=== PATIENT | female | born 1940 | race Caucasian/White ===

== ENCOUNTER 2017-03-01 16:55 | Observation (INO) | payer MEDICARE, BC ==
--- NOTE | 2017-03-01 17:23 | EDM.PDOC ---
ED HPI GENERAL MEDICAL PROBLEM - General Chief Complaint: Neuro Symptoms/Deficits Stated Complaint: headache, aphasia Time Seen by Provider: 03/01/17 17:15 Source of Information: Reports: Patient History Limitations: Reports: No Limitations - History of Present Illness INITIAL COMMENTS - FREE TEXT/NARRATIVE: This patient is a 76 year old female that presents to the ER with family. Patient reports that she around 3pm developed a left sided frontal headache, dizziness, blurry vision bilaterally, and could not gain thoughts of how to text on her phone. The daughter reports that the patient about 3pm today took her Xanax, then shortly after called her daughter on the phone saying that she had a headache, couldnt see very well, and could not thin very well. The male at bedside reports the patient was confused when they saw her about 4pm. He said they patient could not remember things like what her purse or where it was and that she was disoriented. They report this is new and not like her at all. The report she had some mild slurred speech. They report the patient about 2 months ago had CABG performed at [facility]. The patient reports that she has never had anything like this before. The patient currently is alert and oriented. My stroke score on exam is 0. GCS is 15. The nurse stroke score was 2 about 5 minutes prior to me seeing her. She reported the patient had slurred speech, this is resolved when I saw the patient. The patient does follow most commands, except at times has to be asked twice to perform a stroke command. The patient reports she still has her headache. She reports her blurry vision is resolved. Onset Date: 03/01/17 Onset Time: 15:00 Quality: Reports: Ache, Throbbing Severity: Moderate Improves with: Reports: None Worsens with: Reports: None Associated Symptoms: Reports: Confusion, Headaches. Denies: Chest Pain, Cough, cough w sputum, Diaphoresis, Fever/Chills, Loss of Appetite, Malaise, Nausea/ Vomiting, Rash, Seizure, Shortness of Breath, Syncope, Weakness Left Head Pain Score (Numeric/FACES): 7 - Related Data Allergies Allergy/AdvReac Type Severity Reaction Status Date / Time sulfasalazine [Sulfasalazine] Allergy Mild Rash Verified 02/04/17 15:55 NSAIDS (Non-Steroidal AdvReac Stomach Verified 03/01/17 17:40 Anti-Inflamma Upset Home Meds: Home Meds ALPRAZolam [Alprazolam] 0.25 mg PO TID PRN 11/04/14 [History] Biotin 1 mg PO DAILY 11/04/14 [History] Cholecalciferol (Vitamin D3) [Vitamin D3] 5,000 unit PO DAILY 11/04/14 [History] Cyanocobalamin (Vitamin B-12) [Vitamin B-12] 1,000 mcg PO DAILY 11/04/14 [ History] Levothyroxine 75 mcg PO ACBREAKFAST 11/04/14 [History] traMADol HCl [Tramadol HCl] 50 mg PO TID 11/04/14 [History] DULoxetine HCl [Cymbalta] 30 mg PO DAILY 04/04/15 [History] Aspirin [Ecotrin] 325 mg PO DAILY 02/05/17 [History] Metoprolol Tartrate 12.5 mg PO BID 02/05/17 [History] atorvaSTATin [Lipitor] 20 mg PO DAILY 02/05/17 [History] Past Medical History HEENT History: Reports: Cataract Other Cardiovascular History: MYOCARDITIS; hypercholesterolemia, hypothyrodism, essential hypertension, sick sinus syndrome, diverticulitis with resection, encephalopathy, Gastrointestinal History: Reports: Diverticulosis Genitourinary History: Reports: Other (See Below) Other Genitourinary History: bladder repair Psychiatric History: Reports: Anxiety, Depression Other Endocrine/Metabolic History: HYPOGLYCEMIA - Past Surgical History Other Cardiovascular Surgeries/Procedures: [facility] has been seeing her, will discharge her on 01-30-17; drove to rehab today; has appt with cardiology on 02-02-17; has had one postop appt already. angio 12-19-16, discharged on ; daughter in law stayed with her in her home for a few days; c/o fatigue for awhile, SOB, saw Dr. Benson for a physical, had a stress test, referred to Dr Longo in [place]. She said he did not recommend an angiogram; so Dr. Benson sent her to [place]. Had a pacemaker inserted years ago. Has a history of knee and ankle discomfort--arthritis; since CABG: SOB improving, appetite good, dietitian brought diet pamphlets to her room, not sure that she wants to see a dietitian, knows what to eat, left leg incision and chest incision healing; denies dizziness, denies insomnia. Other GI Surgeries/Procedures: LAP TOÑO Other Musculoskeletal Surgeries/Procedures:: KNEE SURGERY Social & Family History - Tobacco Use Smoking Status *Q: Never Smoker Second Hand Smoke Exposure: No - Caffeine Use Caffeine Use Comment: 1 diet coke/day. Discussed ED ROS GENERAL - Review of Systems Review Of Systems: See Below Constitutional: Reports: No Symptoms HEENT: Reports: Vision Change (blurry vision bialterally. ) Respiratory: Reports: No Symptoms Cardiovascular: Reports: No Symptoms Endocrine: Reports: No Symptoms GI/Abdominal: Reports: No Symptoms : Reports: No Symptoms Musculoskeletal: Reports: No Symptoms Skin: Reports: No Symptoms Neurological: Reports: Confusion, Headache, Change in Speech (resolved. ). Denies: Paresthesia, Syncope, Difficulty Walking, Weakness Psychiatric: Reports: Anxiety Hematologic/Lymphatic: Reports: No Symptoms Immunologic: Reports: No Symptoms ED EXAM, NEURO - Physical Exam Exam: See Below Exam Limited By: No Limitations General Appearance: Alert, WD/WN, No Apparent Distress Eye Exam: Bilateral Eye: EOMI, Normal Inspection, PERRL Ears: Normal External Exam, Normal Canal, Hearing Grossly Normal, Normal TMs Nose: Normal Inspection, Normal Mucosa, No Blood Throat/Mouth: Normal Inspection, Normal Lips, Normal Teeth, Normal Gums, Normal Oropharynx, Normal Voice, No Airway Compromise Head Exam: Atraumatic, Normocephalic Neck: Normal Inspection, Supple, Non-Tender, Full Range of Motion Respiratory/Chest: No Respiratory Distress, Lungs Clear, Normal Breath Sounds, No Accessory Muscle Use, Chest Non-Tender Cardiovascular: Normal Peripheral Pulses, Regular Rate, Rhythm, No Edema, No Gallop, No JVD, No Murmur, No Rub GI/Abdominal: Normal Bowel Sounds, Soft, Non-Tender, No Organomegaly, No Distention, No Abnormal Bruit, No Mass, Pelvis Stable Neurological: Alert, CN II-XII Intact (twice has to be asked twice to perform a command. ), Oriented x 3 Back Exam: Normal Inspection, Full Range of Motion Extremities: Normal Inspection, Normal Range of Motion, Non-Tender, No Pedal Edema, Normal Capillary Refill Psychiatric: Normal Affect, Normal Mood Skin Exam: Warm, Dry, Intact, Normal Color, No Rash Course - Vital Signs Last Recorded V/S: Last Vital Signs Temp 98.8 F 03/01/17 17:05 Pulse 70 03/01/17 18:15 Resp 16 03/01/17 17:05 BP 150/81 H 03/01/17 18:15 Pulse Ox 95 03/01/17 17:05 - Orders/Labs/Meds Orders: Active Orders 24 hr Category Date Time Status EKG Documentation Completion [RC] STAT Care 03/01/17 17:16 Inactive Chest 2V [CR] Stat Exams 03/01/17 17:23 Taken Head wo Cont [CT] Stat Exams 03/01/17 17:03 Taken Labs: Laboratory Tests 03/01/17 03/01/17 03/01/17 Range/Units 17:03 17:20 17:20 WBC 6.8 (5.0-10.0) 10^3/uL RBC 3.77 L (4.00-5.50) 10^6/uL Hgb 11.4 L (12.0-16.0) g/dL Hct 35.8 L (37.0-47.0) % MCV 95.0 H (82.0-94.0) fL MCH 30.2 (27.0-32.0) pg MCHC 31.8 L (33.0-38.0) g/dL RDW Coeff of Eduardo 12.6 (11.0-15.0) % Plt Count 303 (150-400) 10^3/uL Neut % (Auto) 53.3 (35-85) % Lymph % (Auto) 32.2 (10-55) % [place] % (Auto) 11.3 (0-16) % Eos % (Auto) 2.6 (0-5) % Baso % (Auto) 0.6 (0-3) % Neut # (Auto) 3.65 (1.80-7.00) 10^3/uL Lymph # (Auto) 2.20 (1.00-4.80) 10^3/uL [place] # (Auto) 0.77 (0.00-0.80) 10^3/uL Eos # (Auto) 0.18 (0.00-0.45) 10^3/uL Baso # (Auto) 0.04 10^3/uL PT 10.7 (9.7-12.3) SEC INR 0.99 (0.92-1.18) APTT 25.2 (20.0-45.0) SEC Sodium (136-145) mEq/L Potassium (3.5-5.0) mEq/L Chloride (98-106) mEq/L Carbon Dioxide (21-32) mmol/L BUN (7-18) mg/dL Creatinine (0.6-1.0) mg/dL Est Cr Clr Drug Dosing mL/min Estimated GFR (MDRD) (>=60) mL/min Glucose (75-99) mg/dL Calcium (8.4-10.1) mg/dL Total Bilirubin (0.0-1.0) mg/dL AST (15-37) U/L ALT (12-78) U/L Alkaline Phosphatase (46-116) U/L Creatine Kinase (21-215) U/L Troponin I (0.00-0.06) ng/mL Total Protein (6.4-8.2) g/dL Albumin (3.4-5.0) g/dL Urine Color Yellow (YELLOW) Urine Appearance Clear (CLEAR) Urine pH 7.0 (4.5-8.0) Ur Specific [place] 1.015 (1.003-1.020) Urine Protein Negative (NEGATIVE) mg/dL Urine Glucose (UA) Negative (NEGATIVE) mg/dL Urine Ketones Negative (NEGATIVE) mg/dL Urine Occult Blood Trace-intact H (NEGATIVE) Urine Nitrite Negative (NEGATIVE) Urine Bilirubin Negative (NEGATIVE) Urine Urobilinogen 0.2 (0.2-1.0) EU/dL Ur Leukocyte Esterase Small H (NEGATIVE) Urine RBC 0-5 (0-5) /HPF Urine WBC 0-5 (0-5) /HPF Ur Squamous Epith Cells Few H (NOT SEEN) /HPF 03/01/17 03/01/17 Range/Units 17:20 17:20 WBC (5.0-10.0) 10^3/uL RBC (4.00-5.50) 10^6/uL Hgb (12.0-16.0) g/dL Hct (37.0-47.0) % MCV (82.0-94.0) fL MCH (27.0-32.0) pg MCHC (33.0-38.0) g/dL RDW Coeff of Eduardo (11.0-15.0) % Plt Count (150-400) 10^3/uL Neut % (Auto) (35-85) % Lymph % (Auto) (10-55) % [place] % (Auto) (0-16) % Eos % (Auto) (0-5) % Baso % (Auto) (0-3) % Neut # (Auto) (1.80-7.00) 10^3/uL Lymph # (Auto) (1.00-4.80) 10^3/uL [place] # (Auto) (0.00-0.80) 10^3/uL Eos # (Auto) (0.00-0.45) 10^3/uL Baso # (Auto) 10^3/uL PT (9.7-12.3) SEC INR (0.92-1.18) APTT (20.0-45.0) SEC Sodium 139 (136-145) mEq/L Potassium 4.1 (3.5-5.0) mEq/L Chloride 100 (98-106) mEq/L Carbon Dioxide 31 (21-32) mmol/L BUN 19 H D (7-18) mg/dL Creatinine 0.9 (0.6-1.0) mg/dL Est Cr Clr Drug Dosing 42.72 mL/min Estimated GFR (MDRD) > 60 (>=60) mL/min Glucose 99 (75-99) mg/dL Calcium 8.9 (8.4-10.1) mg/dL Total Bilirubin 0.3 (0.0-1.0) mg/dL AST 16 (15-37) U/L ALT 21 (12-78) U/L Alkaline Phosphatase 99 (46-116) U/L Creatine Kinase 55 (21-215) U/L Troponin I 0.031 (0.00-0.06) ng/mL Total Protein 7.2 (6.4-8.2) g/dL Albumin 3.3 L (3.4-5.0) g/dL Urine Color (YELLOW) Urine Appearance (CLEAR) Urine pH (4.5-8.0) Ur Specific [place] (1.003-1.020) Urine Protein (NEGATIVE) mg/dL Urine Glucose (UA) (NEGATIVE) mg/dL Urine Ketones (NEGATIVE) mg/dL Urine Occult Blood (NEGATIVE) Urine Nitrite (NEGATIVE) Urine Bilirubin (NEGATIVE) Urine Urobilinogen (0.2-1.0) EU/dL Ur Leukocyte Esterase (NEGATIVE) Urine RBC (0-5) /HPF Urine WBC (0-5) /HPF Ur Squamous Epith Cells (NOT SEEN) /HPF Meds: Medications Discontinued Medications Generic Name Dose Route Start Last Admin Trade Name Wade PRN Reason Stop Dose Admin Metoprolol Tartrate 2.5 mg 03/01/17 18:08 03/01/17 18:15 Lopressor IVPUSH 03/01/17 18:09 2.5 mg ONETIME ONE Administration - Radiology Interpretation Free Text/Narrative:: Head CT: Discussed with radiologist: No acute bleed, stroke, ischemia. There is chronic, but unchanged from previous. cxr: previous CABG in place. No infiltrate, no edema. CT Results Date: 03/01/17 CT Results Time: 18:00 - Re-Assessments/Exams Free Text/Narrative Re-Assessment/Exam: 03/01/17 18:18 The patient reports that she only has a mild headache now. All other symptoms have resolved. I have called and spoke with Dr. Valdez neurologist at [facility]. He believes this is not a bleed because not on CT, not ischemic because the patient has a headache. He reports he thinks this is hypertension related and would treat as hypertension. I will treat her HTN and admit to the hospital. Family is fine with this plan. Departure - Departure Time of Disposition: 18:20 Disposition: Refer to Observation Condition: Fair Clinical Impression: Hypertensive emergency Headache Qualifiers: Headache type: other vascular headache Qualified Code(s): G44.1 - Vascular headache, not elsewhere classified - Discharge Information Forms: ED Department Discharge - My Orders Last 24 Hours: My Active Orders 03/01/17 17:03 Head wo Cont [CT] Stat 03/01/17 17:16 EKG Documentation Completion [RC] STAT 03/01/17 17:23 Chest 2V [CR] Stat - Assessment/Plan Last 24 Hours: My Active Orders 03/01/17 17:03 Head wo Cont [CT] Stat 03/01/17 17:16 EKG Documentation Completion [RC] STAT 03/01/17 17:23 Chest 2V [CR] Stat Plan: PLEASE SEE RN NOTE FOR PFSH. PLEASE USE ER H&P ADMIT H&P.
[2017-03-01 17:40] LABS: CHLORIDE,CL 100 mEq/L (98-106); SODIUM,NA 139 mEq/L (136-145)
[2017-03-01] MEDS ORDERED: Metoprolol Tartrate 5 MG/5 ML SDV IVPUSH ONE ×2 (18:08→18:36)
[2017-03-01] MEDS ORDERED: Ondansetron 4 MG/2 ML SDV IV PRN (19:45)
[2017-03-01] MEDS ORDERED: Acetaminophen/HYDROcodone 325-5 MG Tab PO PRN (19:45)
[2017-03-01] MEDS ORDERED: ALPRAZolam 0.25 MG Tab PO PRN (19:45)
[2017-03-01] MEDS ORDERED: Acetaminophen 325 MG Tab PO PRN (19:45)
[2017-03-01] MEDS ORDERED: HYDROmorphone 1 MG/ML Syringe IVPUSH PRN (19:45)
[2017-03-01] MEDS ORDERED: Ibuprofen 200 MG Tab PO PRN (19:45)
[2017-03-01] MEDS: Enoxaparin 40 MG/0.4 ML Syringe SUBCUT SCH (20:25)
[2017-03-01] MEDS: TRAMADOL 50 MG PO SCH (20:38)
[2017-03-01] MEDS: METOPROLOL TARTRATE 25 MG PO SCH (20:39)
[2017-03-02] MEDS: Levothyroxine 150 MCG Tab PO SCH (07:01)
[2017-03-02] MEDS ORDERED: Non-Formulary Medication 1 Each (Biotin [Biotin] 1 MG) PO SCH (08:00)
[2017-03-02] MEDS ORDERED: FLU Vacc QS 2017-18 (36mos UP)/PF 60 MCG/0.5 ML Syringe IM ONE (08:00)
[2017-03-02 08:22] LABS: CHLORIDE,CL 101 mEq/L (98-106); SODIUM,NA 138 mEq/L (136-145)
[2017-03-02] MEDS ORDERED: Iopamidol 755 Mg/ML 100 ML Bottle IVPUSH ONE (08:37)
[2017-03-02] MEDS: DULoxetine 30 MG Cap PO SCH (08:40)
[2017-03-02] MEDS: Cholecalciferol (Vitamin D3) 1,000 Unit Tab PO SCH (08:40)
[2017-03-02] MEDS: Cyanocobalamin (Vitamin B12) 1,000 MCG Tab PO SCH (08:42)
[2017-03-02] MEDS: Aspirin 325 MG Tab.EC PO SCH (08:42)
[2017-03-02] MEDS: METOPROLOL TARTRATE 25 MG PO SCH ×2 (08:42→20:27)
[2017-03-02] MEDS: atorvaSTATin 20 MG Tab PO SCH (08:42)
[2017-03-02] MEDS: TRAMADOL 50 MG PO SCH ×3 (08:48→20:27)
--- NOTE | 2017-03-02 09:26 | PN ---
DATE: 03/02/2017 S: Ginger Kim came in with hypertension with TIA symptoms with expressive aphasia. O: NECK: On examination this morning, neck was supple. CHEST: Clear. CARDIAC: Regular. Sternotomy looked good. ABDOMEN: Soft. EXTREMITIES: Unremarkable. NEUROLOGIC: Unremarkable. ASSESSMENT: HYPERTENSIVE CRISIS, TRANSIENT ISCHEMIC ATTACK, STATUS POST CORONARY ARTERY BYPASS SURGERY. WE WILL GO AHEAD AND DO AN ECHO ON HER AND CTA HEAD AND NECK AND STARTED HER ON LISINOPRIL 10 [address] SUKUMAR/ELA /[id number]
[2017-03-02] MEDS: Lisinopril 10 MG Tab PO SCH ×2 (10:35→20:27)
[2017-03-02] MEDS: Enoxaparin 40 MG/0.4 ML Syringe SUBCUT SCH (20:26)
[2017-03-03] MEDS: METOPROLOL TARTRATE 25 MG PO SCH ×2 (00:50→11:36)
[2017-03-03] MEDS: TRAMADOL 50 MG PO SCH ×2 (00:51→11:37)
[2017-03-03 07:53] LABS: CHLORIDE,CL 101 mEq/L (98-106); SODIUM,NA 138 mEq/L (136-145)
[2017-03-03] MEDS: Aspirin 325 MG Tab.EC PO SCH (11:35)
[2017-03-03] MEDS: Levothyroxine 150 MCG Tab PO SCH (11:35)
[2017-03-03] MEDS: DULoxetine 30 MG Cap PO SCH (11:35)
[2017-03-03] MEDS: Lisinopril 10 MG Tab PO SCH (11:36)
[2017-03-03] MEDS: atorvaSTATin 20 MG Tab PO SCH (11:36)
[2017-03-03 11:38] VITALS: BP 126/63
[2017-03-03] MEDS: Cyanocobalamin (Vitamin B12) 1,000 MCG Tab PO SCH (11:38)
[2017-03-03] MEDS: Cholecalciferol (Vitamin D3) 1,000 Unit Tab PO SCH (11:38)
--- NOTE | 2017-03-03 11:58 | PCM.DCSUM1 ---
Discharge Summary - Hospital Course HPI Initial Comments: Patient is a 76 year old female with a past medical history of CAD (CABG x2 2016), hypertension, hyperlipidemia, hypothyroidism, anxiety, and depression who presented to the ER on 03/01/2017 with complaints of left sided frontal headache, dizziness, blurred vision, and difficulty gaining thoughts/words. Family reported confusion and some slurred speech. These symptoms were resolved by the time the provider saw the patient. NIH was [address] was negative. Neurologist was consulted via phone and believed this to be related to hypertension. Patient's blood pressures in the ER were 170's-150's systolic. Patient was given IV metoprolol, which improved blood pressure. Patient was admitted for observation. Throughout hospital stay, blood pressure was well controlled. Patient did not have any further symptoms. Patient remained alert and oriented. Head CTA was completed and negative. Patient was started on lisinopril. Patient will have out patient echo. Patient will follow up in clinic with Dr. Benson in one week. - Discharge Data Discharge Date: 03/03/17 Discharge Disposition: Home, Self-Care 01 Condition: Good - Discharge Diagnosis/Problem(s) (1) Hypertensive emergency SNOMED Code(s): 753859462009083 ICD Code: I16.1 - HYPERTENSIVE EMERGENCY Status: Acute (2) Status post coronary artery bypass graft SNOMED Code(s): 185837706 ICD Code: Z95.1 - PRESENCE OF AORTOCORONARY BYPASS GRAFT Status: Acute (3) TIA (transient ischemic attack) SNOMED Code(s): 875829442 ICD Code: G45.9 - TRANSIENT CEREBRAL ISCHEMIC ATTACK, UNSPECIFIED Status: Acute - Patient Instructions Diet: Heart Healthy Diet Activity: As Tolerated - Discharge Plan Prescriptions/Med Rec: Lisinopril [Prinivil] 10 mg PO BID 30 Days #60 tablet Home Medications: Home Meds ALPRAZolam [Alprazolam] 0.25 mg PO TID PRN 11/04/14 [History] Biotin 1 mg PO DAILY 11/04/14 [History] Cholecalciferol (Vitamin D3) [Vitamin D3] 5,000 unit PO DAILY 11/04/14 [History] Cyanocobalamin (Vitamin B-12) [Vitamin B-12] 1,000 mcg PO DAILY 11/04/14 [ History] Levothyroxine 75 mcg PO ACBREAKFAST 11/04/14 [History] traMADol HCl [Tramadol HCl] 50 mg PO TID 11/04/14 [History] DULoxetine HCl [Cymbalta] 30 mg PO DAILY 04/04/15 [History] Aspirin [Ecotrin] 325 mg PO DAILY 02/05/17 [History] Metoprolol Tartrate 12.5 mg PO BID 02/05/17 [History] atorvaSTATin [Lipitor] 20 mg PO DAILY 02/05/17 [History] Lisinopril [Prinivil] 10 mg PO BID 30 Days #60 tablet 03/03/17 [Rx] Patient Handouts: Stroke Prevention, [id number], Hypertension, [id number], Lisinopril tablets, Managing Your High Blood Pressure Forms: ED Department Discharge Referrals: Conner Benson MD [Primary Care Provider] - - General Info Date of Service: 03/03/17 Admission Dx/Problem (Free Text: Hypertensive Emergency TIA Status Post CABG Subjective Update: At the time of discharge, patient was alert and oriented with no neurologic deficits. Her blood pressure was well controlled. Patient denied any pain. Functional Status: Reports: Pain Controlled, Tolerating Diet, Ambulating, Urinating. Denies: New Symptoms - Review of Systems General: Reports: No Symptoms. Denies: Fever, Weakness, Fatigue HEENT: Reports: No Symptoms Pulmonary: Reports: No Symptoms Cardiovascular: Reports: No Symptoms. Denies: Chest Pain, Palpitations, Lightheadedness Gastrointestinal: Reports: No Symptoms Genitourinary: Reports: No Symptoms Musculoskeletal: Reports: No Symptoms Skin: Reports: No Symptoms Neurological: Reports: No Symptoms. Denies: Confusion, Dizziness, Headache, Numbness, Paresthesia, Pre-Existing Deficit, Seizure, Syncope, Tingling, Tremors , Trouble Speaking, Difficulty Walking, Weakness, Change in Speech, Gait Disturbance Psychiatric: Reports: Anxiety - Patient Data Vitals - Most Recent: Last Vital Signs Temp 98.2 F 03/03/17 08:00 Pulse 58 L 03/03/17 11:36 Resp 18 03/03/17 08:00 BP 126/63 03/03/17 11:36 Pulse Ox 97 03/03/17 08:00 Weight - Most Recent: 123 lb 4.8 oz I&O - Last 24 hours: Intake & Output 10/03/03/17 03/03/17 22:59 06:59 14:59 Intake Total 200 Balance 200 Lab Results - Last 24 hrs: Laboratory Results - last 24 hr 03/03/17 03/03/17 Range/Units 07:00 07:00 WBC 6.3 (5.0-10.0) 10^3/uL RBC 3.80 L (4.00-5.50) 10^6/uL Hgb 11.4 L (12.0-16.0) g/dL Hct 36.2 L (37.0-47.0) % MCV 95.3 H (82.0-94.0) fL MCH 30.0 (27.0-32.0) pg MCHC 31.5 L (33.0-38.0) g/dL RDW Coeff of Eduardo 12.6 (11.0-15.0) % Plt Count 276 (150-400) 10^3/uL Neut % (Auto) 54.8 (35-85) % Lymph % (Auto) 28.8 (10-55) % [place] % (Auto) 13.4 (0-16) % Eos % (Auto) 2.7 (0-5) % Baso % (Auto) 0.3 (0-3) % Neut # (Auto) 3.44 (1.80-7.00) 10^3/uL Lymph # (Auto) 1.81 (1.00-4.80) 10^3/uL [place] # (Auto) 0.84 H (0.00-0.80) 10^3/uL Eos # (Auto) 0.17 (0.00-0.45) 10^3/uL Baso # (Auto) 0.02 10^3/uL Sodium 138 (136-145) mEq/L Potassium 4.2 (3.5-5.0) mEq/L Chloride 101 (98-106) mEq/L Carbon Dioxide 33 H (21-32) mmol/L BUN 15 (7-18) mg/dL Creatinine 0.9 (0.6-1.0) mg/dL Est Cr Clr Drug Dosing 42.72 mL/min Estimated GFR (MDRD) > 60 (>=60) mL/min Glucose 89 (75-99) mg/dL Calcium 9.2 (8.4-10.1) mg/dL Med Orders - Current: Current Medications Acetaminophen (Tylenol) 650 mg PO Q4H PRN PRN Reason: Pain (Mild 1-3)/fever Hydrocodone Bitart/Acetaminophen ([place] 325-5 Mg) 1 tab PO Q4H PRN PRN Reason: Pain (moderate 4-6) Last Admin: 03/03/17 03:22 Dose: 1 tab Alprazolam (Xanax) 0.25 mg PO TID PRN PRN Reason: Anxiety Aspirin (Ecotrin) 325 mg PO DAILY [facility] Last Admin: 03/03/17 11:35 Dose: Not Given Atorvastatin Calcium (Lipitor) 20 mg PO DAILY [facility] Last Admin: 03/03/17 11:36 Dose: Not Given Cholecalciferol (Vitamin D3) 5,000 units PO DAILY [facility] Last Admin: 03/03/17 11:38 Dose: Not Given Cyanocobalamin (Vitamin B12) 1,000 mcg PO DAILY [facility] Last Admin: 03/03/17 11:38 Dose: Not Given Duloxetine HCl (Cymbalta) 30 mg PO DAILY [facility] Last Admin: 03/03/17 11:35 Dose: Not Given Enoxaparin Sodium (Lovenox) 40 mg SUBCUT BEDTIME [facility] Last Admin: 03/02/17 20:26 Dose: 40 mg Hydromorphone HCl (Dilaudid) 0.25 mg IVPUSH Q2H PRN PRN Reason: Pain (severe 7-10) Ibuprofen (Motrin) 600 mg PO Q6H PRN PRN Reason: Pain (mild 1-3) Levothyroxine Sodium (Levothyroxine) 75 mcg PO ACBREAKFAST [facility] Last Admin: 03/03/17 11:35 Dose: Not Given Lisinopril (Prinivil) 10 mg PO BID [facility] Last Admin: 03/03/17 11:36 Dose: Not Given Metoprolol Tartrate (Lopressor) 12.5 mg PO BID [facility] Last Admin: 03/03/17 11:36 Dose: Not Given Ondansetron HCl (Zofran) 4 mg IV Q6H PRN PRN Reason: Nausea/Vomiting Tramadol HCl (Ultram) 50 mg PO TID [facility] Last Admin: 03/03/17 11:37 Dose: Not Given Discontinued Medications Influenza Virus Vaccine (Fluzone Quad 3792-1900) 60 mcg IM .ONCE ONE Stop: 03/02/17 08:01 Last Admin: 03/02/17 11:59 Dose: 60 mcg Iopamidol (Isovue-370 (76%)) 100 ml IVPUSH ONETIME ONE Stop: 03/02/17 08:38 Last Admin: 03/02/17 08:57 Dose: 100 ml Metoprolol Tartrate (Lopressor) 2.5 mg IVPUSH ONETIME ONE Stop: 03/01/17 18:09 Last Admin: 03/01/17 18:15 Dose: 2.5 mg Metoprolol Tartrate (Lopressor) 2.5 mg IVPUSH ONETIME ONE Stop: 03/01/17 18:37 Last Admin: 03/01/17 19:51 Dose: 2.5 mg Non-Formulary Medication (Biotin [Biotin]) 1 mg PO DAILY KRIS[facility] - Exam General: Reports: Alert, Oriented, No Acute Distress HEENT: Reports: Pupils Equal, Pupils Reactive, EOMI, Mucous Membr. Moist/[place] Neck: Reports: Supple Lungs: Reports: Clear to Auscultation, Normal Respiratory Effort Cardiovascular: Reports: Regular Rate, Regular Rhythm GI/Abdominal Exam: Normal Bowel Sounds, Soft, Non-Tender, No Organomegaly, No Distention, No Abnormal Bruit, No Mass, Pelvis Stable (Female) Exam: Deferred Rectal (Female) Exam: Deferred Back Exam: Reports: Normal Inspection, Full Range of Motion Extremities: Normal Inspection, Normal Range of Motion, Non-Tender, No Pedal Edema, Normal Capillary Refill Skin: Reports: Warm, Dry, Intact Neurological: Reports: No New Focal Deficit Psy/Mental Status: Reports: Alert, Normal Affect, Normal Mood *Q Meaningful Use (DIS) - VTE *Q VTE Criteria *Q: - Stroke *Q Stroke Criteria *Q: - AMI *Q AMI Criteria *Q: - [place] I, II, III (1) Hypertensive emergency SNOMED Code(s): 063295130666598 ICD Code: I16.1 - HYPERTENSIVE EMERGENCY Status: Acute - Plan FREE TEXT/NARRATIVE: Continue current home meds. Will start lisinopril 10 mg BID. Continue to check home blood pressures at least twice daily. Discussed stroke symptoms and when to present to ER. Follow up with Dr. Benson in 1 week for hospital recheck. - Problem List Review Problem List Initiated/Reviewed/Updated: Yes - Orders Orders Last 24hrs: Active Orders 24 hr Category Date Time Status Ready for Discharge [RC] PER UNIT ROUTINE Care 03/03/17 09:59 Active
== END 2017-03-03 11:30 | disposition home or self-care (01) ==
LOC: CC.ED 16:55 → UNDOADMOB 18:39 → CC.MS 18:39
PROVIDERS: ADMIT Nurse Practitioner; ATTEND General Practice
DX: I16.1 Hypertensive emergency (principal); G45.9 Transient cerebral ischemic attack, unspecified; R47.01 Aphasia; I25.10 Atherosclerotic heart disease of native coronary artery without angina pectoris; E78.5 Hyperlipidemia, unspecified; E03.9 Hypothyroidism, unspecified; F41.9 Anxiety disorder, unspecified; Z95.1 Presence of aortocoronary bypass graft; Z79.82 Long term (current) use of aspirin; Z79.899 Other long term (current) drug therapy; Z23 Encounter for immunization
CPT/HCPCS: 36415; 70450; 70496; 71020; 80048; 80053; 81001; 82550; 84484; 85025; 85610; 85730; 93005; 93010; 96372; 96374; 96376; 99217; 99220; 99225; 99285; A9270; G0378; J1650; Q9967; 90686; G0008; J3490

== ENCOUNTER 2017-08-25 21:50 | Observation (INO) | payer MEDICARE, BC ==
--- NOTE | 2017-08-25 22:22 | EDM.PDOC ---
ED HPI GENERAL MEDICAL PROBLEM - General Chief Complaint: General Stated Complaint: BILAT SHOULDER PAIN Time Seen by Provider: 08/25/17 22:15 Source of Information: Reports: Patient History Limitations: Reports: No Limitations - History of Present Illness INITIAL COMMENTS - FREE TEXT/NARRATIVE: Ginger is a 76 year old female with a PMH of hypertension, hyperlipidemia, hypothyroidism, and CAD s/p CABG who presents to the ED with c/o bilateral shoulder pain. She reports the pain started around 1830. She reports the pain "sort of" radiates across her chest and down her arms. She reports she does have a history of arthritis and anxiety. She did take an Aleve and Xanax prior to ED presentation. She does report the pain has improved. She is concerned and wants to make sure it is not her heart, as she has a history of double bypass about a year ago. She does report dysnpea with exertion. She reports she has had dyspnea with exertion for awhile now. She denies any shortness of breath at rest currently. Denies any chest pain per say. Denies any N/V, dizziness, headache, weakness. Denies any palpitations or issues with BP. No other concerns. Onset: Today, Gradual Onset Date: 08/25/17 Onset Time: 18:30 Duration: Improving Location: Reports: Chest, Upper Extremity, Left, Upper Extremity, Right Quality: Reports: Ache, Dull Severity: Mild Improves with: Reports: None Worsens with: Reports: None Associated Symptoms: Reports: Chest Pain, Shortness of Breath. 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, Other Medication(s) (XANAX) Bilateral Shoulder Pain Score (Numeric/FACES): 2 - Related Data Allergies Allergy/AdvReac Type Severity Reaction Status Date / Time sulfasalazine [Sulfasalazine] Allergy Mild Rash Verified 08/25/17 21:57 Home Meds: Home Meds ALPRAZolam [Alprazolam] 0.25 mg PO TID PRN 11/04/14 [History] Biotin 1 mg PO DAILY 11/04/14 [History] Cholecalciferol (Vitamin D3) [Vitamin D3] 5,000 unit PO DAILY 11/04/14 [History] Cyanocobalamin (Vitamin B-12) [Vitamin B-12] 1,000 mcg PO DAILY 11/04/14 [ History] Levothyroxine 75 mcg PO ACBREAKFAST 11/04/14 [History] traMADol HCl [Tramadol HCl] 50 mg PO TID 11/04/14 [History] DULoxetine HCl [Cymbalta] 30 mg PO DAILY 04/04/15 [History] Metoprolol Tartrate 12.5 mg PO BID 02/05/17 [History] atorvaSTATin [Lipitor] 20 mg PO DAILY 02/05/17 [History] Lisinopril [Prinivil] 10 mg PO BID 30 Days #60 tablet 03/03/17 [Rx] Loperamide HCl [Anti-Diarrheal] 1 each PO QID PRN 03/17/17 [History] Magnesium 400 mg PO DAILY 03/17/17 [History] Estradiol 1 mg PO DAILY 08/25/17 [History] Past Medical History HEENT History: Reports: Cataract Other Cardiovascular History: MYOCARDITIS; hypercholesterolemia, hypothyrodism, essential hypertension, sick sinus syndrome, diverticulitis with resection, encephalopathy, Gastrointestinal History: Reports: Diverticulosis Genitourinary History: Reports: Other (See Below) Other Genitourinary History: bladder repair Psychiatric History: Reports: Anxiety, Depression Other Endocrine/Metabolic History: HYPOGLYCEMIA - Past Surgical History Other Cardiovascular Surgeries/Procedures: [facility] [place] [facility] been [facility] her, will discharge her on 01-30-17; drove to rehab today; has appt with cardiology on 02-02-17; has had one postop appt already. angio 12-19-16, discharged on ; daughter in law stayed with her in her home for a few days; c/o fatigue for awhile, SOB, saw Dr. Benson for a physical, had a stress test, referred to Dr Longo in [place]. She said he did not recommend an angiogram; so Dr. Benson sent her to [place]. Had a pacemaker inserted years ago. Has a history of knee and ankle discomfort--arthritis; since CABG: SOB improving, appetite good, dietitian brought diet pamphlets to her room, not sure that she wants to see a dietitian, knows what to eat, left leg incision and chest incision healing; denies dizziness, denies insomnia. Other GI Surgeries/Procedures: LAP TOÑO Other Musculoskeletal Surgeries/Procedures:: KNEE SURGERY Social & Family History - Tobacco Use Smoking Status *Q: Never Smoker Second Hand Smoke Exposure: No - Caffeine Use Caffeine Use: Reports: Soda Caffeine Use Comment: 1 diet coke/day. Discussed - Recreational Drug Use Recreational Drug Use: No ED ROS GENERAL - Review of Systems Review Of Systems: See Below Constitutional: Denies: Fever, Chills, Malaise, Weakness, Fatigue, Diaphoresis Respiratory: Denies: Shortness of Breath, Wheezing, Cough, Sputum Cardiovascular: Reports: Chest Pain, Dyspnea on Exertion. Denies: Blood Pressure Problem, Edema, Lightheadedness, Orthopnea, Palpitations, Syncope GI/Abdominal: Reports: Diarrhea. Denies: Abdominal Pain, Decreased Appetite, Nausea, Vomiting : Denies: Dysuria, Frequency, Urgency Musculoskeletal: Reports: Shoulder Pain, Arm Pain, Joint Pain, Joint Swelling Skin: Reports: No Symptoms Neurological: Reports: No Symptoms. Denies: Confusion, Dizziness, Headache, Numbness, Tingling, Weakness Psychiatric: Reports: Anxiety ED EXAM, GENERAL - Physical Exam Exam: See Below General Appearance: Alert, WD/WN, No Apparent Distress Eye Exam: Bilateral Eye: EOMI, PERRL Head: Atraumatic, Normocephalic Neck: Normal Inspection, Supple, Non-Tender, Full Range of Motion Respiratory/Chest: No Respiratory Distress, Lungs Clear, Normal Breath Sounds, No Accessory Muscle Use, Chest Non-Tender Cardiovascular: Normal Peripheral Pulses, Regular Rate, Rhythm, No Edema, No Gallop, No JVD, No Murmur, No Rub Peripheral Pulses: 2+: Dorsalis Pedis (L), Dorsalis Pedis (R) GI/Abdominal: Normal Bowel Sounds, Soft, Non-Tender, No Organomegaly, No Distention, No Abnormal Bruit, No Mass Back Exam: Normal Inspection, Full Range of Motion, NT Extremities: Normal Inspection, Normal Range of Motion, Non-Tender, Normal Capillary Refill, No Pedal Edema Neurological: Alert, Oriented, CN II-XII Intact, Normal Cognition, Normal Gait, Normal Reflexes, No Motor/Sensory Deficits Psychiatric: Normal Affect, Normal Mood Skin Exam: Warm, Dry, Intact, Normal Color, No Rash Lymphatic: No Adenopathy EKG INTERPRETATION EKG Date: 08/25/17 Time: 22:50 Rhythm: NSR [place]: Normal P-Wave: Present QRS: Normal ST-T: Depressed QT: Normal Comparison: NA - No Prior EKG Course - Vital Signs Last Recorded V/S: Last Vital Signs Temp 97.7 F 08/27/17 12:00 Pulse 66 08/27/17 12:00 Resp 16 08/27/17 12:00 BP 129/65 08/27/17 12:00 Pulse Ox 99 08/27/17 12:00 - Orders/Labs/Meds Orders: Medication Orders Acetaminophen (Tylenol) 650 mg PO Q4H PRN PRN Reason: Pain (Mild 1-3)/fever Last Admin: 08/26/17 18:10 Dose: 650 mg Albuterol/Ipratropium (Duoneb 3.0-0.5 Mg/3 Ml) 3 ml NEB Q4H PRN PRN Reason: Shortness Of Breath/wheezing Alprazolam (Xanax) 0.25 mg PO TID PRN PRN Reason: Anxiety Last Admin: 08/26/17 23:15 Dose: 0.25 mg Admin: 08/26/17 18:10 Dose: 0.25 mg Admin: 08/26/17 09:10 Dose: 0.25 mg Atorvastatin Calcium (Lipitor) 20 mg PO DAILY [facility] Last Admin: 08/27/17 08:34 Dose: 20 mg Admin: 08/26/17 09:01 Dose: 20 mg Duloxetine HCl (Cymbalta) 30 mg PO DAILY [facility] Last Admin: 08/27/17 08:34 Dose: 30 mg Admin: 08/26/17 09:02 Dose: 30 mg Enoxaparin Sodium (Lovenox) 40 mg SUBCUT Q24H [facility] Last Admin: 08/26/17 23:15 Dose: 40 mg Admin: 08/26/17 01:34 Dose: 40 mg Estradiol (Estradiol) 1 mg PO DAILY [facility] Last Admin: 08/27/17 08:34 Dose: Admin: 08/26/17 23:20 Dose: 1 mg Levothyroxine Sodium (Synthroid) 75 mcg PO ACBREAKFAST [facility] Last Admin: 08/27/17 08:33 Dose: 75 mcg Admin: 08/26/17 08:58 Dose: 75 mcg Lisinopril (Prinivil) 10 mg PO BID [facility] Last Admin: 08/27/17 11:48 Dose: 10 mg Admin: 08/26/17 20:37 Dose: 10 mg Admin: 08/26/17 09:04 Dose: 10 mg Admin: 08/26/17 01:35 Dose: Not Given Magnesium Hydroxide (Milk Of Magnesia) 30 ml PO Q12H PRN PRN Reason: Constipation Metoprolol Tartrate (Lopressor) 12.5 mg PO BID [facility] Last Admin: 08/26/17 20:36 Dose: 12.5 mg Admin: 08/26/17 08:58 Dose: 12.5 mg Admin: 08/26/17 01:35 Dose: Not Given Metoprolol Tartrate (Lopressor) 2.5 mg IVPUSH Q4H PRN PRN Reason: Hypertension Morphine Sulfate (Morphine) 2 mg IVPUSH Q2H PRN PRN Reason: Pain (severe 7-10) Last Admin: 08/26/17 18:38 Dose: 2 mg Sodium Chloride (Saline Flush) 10 ml FLUSH ASDIRECTED PRN PRN Reason: Keep Vein Open Temazepam (Restoril) 15 mg PO BEDTIME PRN PRN Reason: Sleep Tramadol HCl (Ultram) 50 mg PO TID PRN PRN Reason: Pain Labs: Laboratory Tests 08/25/17 08/25/17 08/25/17 Range/Units 22:06 22:06 22:06 WBC 7.6 (5.0-10.0) 10^3/uL RBC 3.41 L (4.00-5.50) 10^6/uL Hgb 11.2 L (12.0-16.0) g/dL Hct 34.2 L (37.0-47.0) % MCV 100.3 H (82.0-94.0) fL MCH 32.8 H (27.0-32.0) pg MCHC 32.7 L (33.0-38.0) g/dL RDW Coeff of Eduardo 12.0 (11.0-15.0) % Plt Count 243 (150-400) 10^3/uL Neut % (Auto) 58.0 (35-85) % Lymph % (Auto) 26.7 (10-55) % [place] % (Auto) 10.7 (0-16) % Eos % (Auto) 4.5 (0-5) % Baso % (Auto) 0.1 (0-3) % Neut # (Auto) 4.40 (1.80-7.00) 10^3/uL Lymph # (Auto) 2.03 (1.00-4.80) 10^3/uL [place] # (Auto) 0.81 H (0.00-0.80) 10^3/uL Eos # (Auto) 0.34 (0.00-0.45) 10^3/uL Baso # (Auto) 0.01 10^3/uL D-Dimer, Quantitative 2.70 H (0.00-0.50) Sodium 137 (136-145) mEq/L Potassium 3.9 (3.5-5.0) mEq/L Chloride 100 (98-106) mEq/L Carbon Dioxide 29 (21-32) mmol/L BUN 20 H D (7-18) mg/dL Creatinine 0.9 (0.6-1.0) mg/dL Est Cr Clr Drug Dosing 42.72 mL/min Estimated GFR (MDRD) > 60 (>=60) mL/min Glucose 100 H (75-99) mg/dL Calcium 8.0 L (8.4-10.1) mg/dL Total Bilirubin 0.3 (0.0-1.0) mg/dL AST 21 (15-37) U/L ALT 27 (12-78) U/L Alkaline Phosphatase 71 (46-116) U/L Lactate Dehydrogenase 145 (100-190) U/L Creatine Kinase 62 (21-215) U/L Troponin I 0.075 H (0.00-0.06) ng/mL C-Reactive Protein < 0.2 L (0.2-0.8) mg/dL Total Protein 6.3 L (6.4-8.2) g/dL Albumin 3.1 L (3.4-5.0) g/dL Meds: Medications Generic Name Dose Route Start Last Admin Trade Name Freq PRN Reason Stop Dose Admin Acetaminophen 650 mg 08/26/17 00:09 08/26/17 18:10 Tylenol PO 650 mg Q4H PRN Administration Pain (Mild 1-3)/fever Albuterol/Ipratropium 3 ml 08/26/17 00:09 Duoneb 3.0-0.5 Mg/3 Ml NEB Q4H PRN Shortness Of Breath/wheezing Alprazolam 0.25 mg 08/26/17 00:09 08/26/17 23:15 Xanax PO 0.25 mg TID PRN Administration Anxiety Atorvastatin Calcium 20 mg 08/26/17 08:00 08/27/17 08:34 Lipitor PO 20 mg DAILY KRISSY Administration Duloxetine HCl 30 mg 08/26/17 08:00 08/27/17 08:34 Cymbalta PO 30 mg DAILY KRISSY Administration Enoxaparin Sodium 40 mg 08/26/17 00:09 08/26/17 23:15 Lovenox SUBCUT 40 mg Q24H KRISSY Administration Estradiol 1 mg 08/26/17 08:00 08/27/17 08:34 Estradiol PO Not Given DAILY [facility] Levothyroxine Sodium 75 mcg 08/26/17 07:00 08/27/17 08:33 Synthroid PO 75 mcg ACBREAKFAST [facility] Administration Lisinopril 10 mg 08/26/17 00:09 08/27/17 11:48 Prinivil PO 10 mg BID [facility] Administration Magnesium Hydroxide 30 ml 08/26/17 00:09 Milk Of Magnesia PO Q12H PRN Constipation Metoprolol Tartrate 12.5 mg 08/26/17 00:09 08/26/17 20:36 Lopressor PO 12.5 mg BID [facility] Administration Metoprolol Tartrate 2.5 mg 08/26/17 00:09 Lopressor IVPUSH Q4H PRN Hypertension Morphine Sulfate 2 mg 08/26/17 00:09 08/26/17 18:38 Morphine IVPUSH 2 mg Q2H PRN Administration Pain (severe 7-10) Sodium Chloride 10 ml 08/26/17 00:09 Saline Flush FLUSH ASDIRECTED PRN Keep Vein Open Temazepam 15 mg 08/26/17 00:09 Restoril PO BEDTIME PRN Sleep Tramadol HCl 50 mg 08/26/17 00:09 Ultram PO TID PRN Pain Discontinued Medications Generic Name Dose Route Start Last Admin Trade Name Freq PRN Reason Stop Dose Admin Aspirin 324 mg 08/25/17 23:11 08/25/17 23:26 Aspirin PO 08/25/17 23:12 324 mg ONETIME ONE Administration Aspirin 324 mg 08/25/17 23:25 08/25/17 23:26 Aspirin PO 08/25/17 23:26 Not Given ONETIME ONE - Re-Assessments/Exams Free Text/Narrative Re-Assessment/Exam: 08/25/17 22:55 Consulted with Britney for review of EKG. Patient does have some nonspecific [place] depressions. Troponin indeterminant at 0.075. D-Dimer elevated to 2.75. Labs otherwise stable. Proceed with Chest CTA. Will admit to observation and recheck troponin and EKG. Departure - Departure Time of Disposition: 23:05 Disposition: Refer to Observation Condition: Good Clinical Impression: Decreased height of T wave, Chest pain, Status post coronary artery bypass graft, Elevated d-dimer CAD (coronary artery disease) Qualifiers: Coronary Disease-Associated Artery/Lesion type: unspecified vessel or lesion type [place] vs. transplanted heart: unspecified whether [place] or transplanted heart Associated angina: with unspecified angina Qualified Code(s): I25.119 - Atherosclerotic heart disease of [place] coronary artery with unspecified angina pectoris - Discharge Information - Problem List & Annotations (1) CAD (coronary artery disease) SNOMED Code(s): 91252230 Code(s): I25.10 - ATHSCL HEART DISEASE OF [place] CORONARY ARTERY W/O ANG PCTRS Status: Acute Priority: High Current Visit: Yes Qualifiers: Coronary Disease-Associated Artery/Lesion type: unspecified vessel or lesion type [place] vs. transplanted heart: unspecified whether [place] or transplanted heart Associated angina: with unspecified angina Qualified Code (s): I25.119 - Atherosclerotic heart disease of [place] coronary artery with unspecified angina pectoris (2) Decreased height of T wave SNOMED Code(s): 62490187 Code(s): R94.31 - ABNORMAL ELECTROCARDIOGRAM [ECG] [EKG] Status: Acute Current Visit: Yes (3) Status post coronary artery bypass graft SNOMED Code(s): 094003648, 443205353, 729222175 Code(s): Z95.1 - PRESENCE OF AORTOCORONARY BYPASS GRAFT Status: Acute Priority: High Current Visit: Yes (4) Atypical chest pain SNOMED Code(s): 863922516 Code(s): R07.89 - OTHER CHEST PAIN Status: Acute Current Visit: Yes - Problem List Review Problem List Initiated/Reviewed/Updated: Yes - Assessment/Plan Admission H&P: Please use this note as an admission H&P Plan: Admit to Dr. Benson observation with cardiac monitoring Chest CTA for elevated D Dimer. Chest CT negative Serial troponin and EKG
[2017-08-25 22:38] LABS: CHLORIDE,CL 100 mEq/L (98-106); SODIUM,NA 137 mEq/L (136-145)
[2017-08-25] MEDS ORDERED: Aspirin 81 MG Tab.Chew PO ONE ×2 (23:11→23:25)
[2017-08-26] MEDS ORDERED: Acetaminophen 325 MG Tab PO PRN (00:09)
[2017-08-26] MEDS ORDERED: Morphine 2 MG/ML Syringe IVPUSH PRN (00:09)
[2017-08-26] MEDS ORDERED: Albuterol/Ipratropium 3.0-0.5 MG/3 ML Neb Soln NEB PRN (00:09)
[2017-08-26] MEDS ORDERED: Metoprolol Tartrate 5 MG/5 ML SDV IVPUSH PRN (00:09)
[2017-08-26] MEDS ORDERED: Temazepam 15 MG Cap PO PRN (00:09)
[2017-08-26] MEDS ORDERED: Magnesium Hydroxide 400 MG/5 ML Susp 30 ML Cup PO PRN (00:09)
[2017-08-26] MEDS ORDERED: traMADol 50 MG Tab PO PRN (00:09)
[2017-08-26] MEDS ORDERED: Sodium Chloride 0.9% 10 ML Syringe FLUSH PRN (00:09)
[2017-08-26] MEDS: Enoxaparin 40 MG/0.4 ML Syringe SUBCUT SCH ×2 (01:34→23:15)
[2017-08-26] MEDS: Metoprolol Tartrate 25 MG Tab PO SCH ×3 (01:35→20:36)
[2017-08-26] MEDS: Lisinopril 10 MG Tab PO SCH ×3 (01:35→20:37)
[2017-08-26] MEDS: Levothyroxine 50 MCG Tab PO SCH (08:58)
[2017-08-26] MEDS: atorvaSTATin 20 MG Tab PO SCH (09:01)
[2017-08-26] MEDS: DULoxetine 30 MG Cap PO SCH (09:02)
[2017-08-26] MEDS: ALPRAZolam 0.25 MG Tab PO PRN ×3 (09:10→23:15)
--- NOTE | 2017-08-26 17:08 | PCM.PN ---
- General Info Date of Service: 08/26/17 Admission Dx/Problem (Free Text): Atypical chest pain Functional Status: Reports: Pain Controlled, Tolerating Diet, Ambulating - Review of Systems General: Denies: Fever, Weakness, Fatigue HEENT: Reports: No Symptoms Pulmonary: Denies: Shortness of Breath, Cough Cardiovascular: Reports: Chest Pain. Denies: Edema, Lightheadedness Gastrointestinal: Denies: Abdominal Pain, Nausea, Vomiting Genitourinary: Reports: No Symptoms Musculoskeletal: Reports: Shoulder Pain, Arm Pain Skin: Reports: No Symptoms Neurological: Reports: No Symptoms Psychiatric: Reports: Anxiety - Patient Data Vitals - Most Recent: Last Vital Signs Temp 98.6 F 08/26/17 12:00 Pulse 60 08/26/17 12:00 Resp 16 08/26/17 12:00 BP 108/60 08/26/17 12:00 Pulse Ox 97 08/26/17 12:00 Weight - Most Recent: 130 lb Lab Results Last 24 Hours: Laboratory Results - last 24 hr 08/25/17 08/25/17 08/25/17 Range/Units 22:06 22:06 22:06 WBC 7.6 (5.0-10.0) 10^3/uL RBC 3.41 L (4.00-5.50) 10^6/uL Hgb 11.2 L (12.0-16.0) g/dL Hct 34.2 L (37.0-47.0) % MCV 100.3 H (82.0-94.0) fL MCH 32.8 H (27.0-32.0) pg MCHC 32.7 L (33.0-38.0) g/dL RDW Coeff of Eduardo 12.0 (11.0-15.0) % Plt Count 243 (150-400) 10^3/uL Neut % (Auto) 58.0 (35-85) % Lymph % (Auto) 26.7 (10-55) % [place] % (Auto) 10.7 (0-16) % Eos % (Auto) 4.5 (0-5) % Baso % (Auto) 0.1 (0-3) % Neut # (Auto) 4.40 (1.80-7.00) 10^3/uL Lymph # (Auto) 2.03 (1.00-4.80) 10^3/uL [place] # (Auto) 0.81 H (0.00-0.80) 10^3/uL Eos # (Auto) 0.34 (0.00-0.45) 10^3/uL Baso # (Auto) 0.01 10^3/uL D-Dimer, Quantitative 2.70 H (0.00-0.50) Sodium 137 (136-145) mEq/L Potassium 3.9 (3.5-5.0) mEq/L Chloride 100 (98-106) mEq/L Carbon Dioxide 29 (21-32) mmol/L BUN 20 H D (7-18) mg/dL Creatinine 0.9 (0.6-1.0) mg/dL Est Cr Clr Drug Dosing 42.72 mL/min Estimated GFR (MDRD) > 60 (>=60) mL/min Glucose 100 H (75-99) mg/dL Calcium 8.0 L (8.4-10.1) mg/dL Total Bilirubin 0.3 (0.0-1.0) mg/dL AST 21 (15-37) U/L ALT 27 (12-78) U/L Alkaline Phosphatase 71 (46-116) U/L Lactate Dehydrogenase 145 (100-190) U/L Creatine Kinase 62 (21-215) U/L Troponin I 0.075 H (0.00-0.06) ng/mL C-Reactive Protein < 0.2 L (0.2-0.8) mg/dL Total Protein 6.3 L (6.4-8.2) g/dL Albumin 3.1 L (3.4-5.0) g/dL 08/26/17 08/26/17 Range/Units 02:12 06:50 WBC (5.0-10.0) 10^3/uL RBC (4.00-5.50) 10^6/uL Hgb (12.0-16.0) g/dL Hct (37.0-47.0) % MCV (82.0-94.0) fL MCH (27.0-32.0) pg MCHC (33.0-38.0) g/dL RDW Coeff of Eduardo (11.0-15.0) % Plt Count (150-400) 10^3/uL Neut % (Auto) (35-85) % Lymph % (Auto) (10-55) % [place] % (Auto) (0-16) % Eos % (Auto) (0-5) % Baso % (Auto) (0-3) % Neut # (Auto) (1.80-7.00) 10^3/uL Lymph # (Auto) (1.00-4.80) 10^3/uL [place] # (Auto) (0.00-0.80) 10^3/uL Eos # (Auto) (0.00-0.45) 10^3/uL Baso # (Auto) 10^3/uL D-Dimer, Quantitative (0.00-0.50) Sodium (136-145) mEq/L Potassium (3.5-5.0) mEq/L Chloride (98-106) mEq/L Carbon Dioxide (21-32) mmol/L BUN (7-18) mg/dL Creatinine (0.6-1.0) mg/dL Est Cr Clr Drug Dosing mL/min Estimated GFR (MDRD) (>=60) mL/min Glucose (75-99) mg/dL Calcium (8.4-10.1) mg/dL Total Bilirubin (0.0-1.0) mg/dL AST (15-37) U/L ALT (12-78) U/L Alkaline Phosphatase (46-116) U/L Lactate Dehydrogenase (100-190) U/L Creatine Kinase (21-215) U/L Troponin I 0.154 H 0.201 H (0.00-0.06) ng/mL C-Reactive Protein (0.2-0.8) mg/dL Total Protein (6.4-8.2) g/dL Albumin (3.4-5.0) g/dL Med Orders - Current: Current Medications Acetaminophen (Tylenol) 650 mg PO Q4H PRN PRN Reason: Pain (Mild 1-3)/fever Albuterol/Ipratropium (Duoneb 3.0-0.5 Mg/3 Ml) 3 ml NEB Q4H PRN PRN Reason: Shortness Of Breath/wheezing Alprazolam (Xanax) 0.25 mg PO TID PRN PRN Reason: Anxiety Last Admin: 08/26/17 09:10 Dose: 0.25 mg Atorvastatin Calcium (Lipitor) 20 mg PO DAILY [facility] Last Admin: 08/26/17 09:01 Dose: 20 mg Duloxetine HCl (Cymbalta) 30 mg PO DAILY [facility] Last Admin: 08/26/17 09:02 Dose: 30 mg Enoxaparin Sodium (Lovenox) 40 mg SUBCUT Q24H [facility] Last Admin: 08/26/17 01:34 Dose: 40 mg Estradiol (Estradiol) 1 mg PO DAILY [facility] Levothyroxine Sodium (Synthroid) 75 mcg PO ACBREAKFAST [facility] Last Admin: 08/26/17 08:58 Dose: 75 mcg Lisinopril (Prinivil) 10 mg PO BID [facility] Last Admin: 08/26/17 09:04 Dose: 10 mg Magnesium Hydroxide (Milk Of Magnesia) 30 ml PO Q12H PRN PRN Reason: Constipation Metoprolol Tartrate (Lopressor) 12.5 mg PO BID [facility] Last Admin: 08/26/17 08:58 Dose: 12.5 mg Metoprolol Tartrate (Lopressor) 2.5 mg IVPUSH Q4H PRN PRN Reason: Hypertension Morphine Sulfate (Morphine) 2 mg IVPUSH Q2H PRN PRN Reason: Pain (severe 7-10) Sodium Chloride (Saline Flush) 10 ml FLUSH ASDIRECTED PRN PRN Reason: Keep Vein Open Temazepam (Restoril) 15 mg PO BEDTIME PRN PRN Reason: Sleep Tramadol HCl (Ultram) 50 mg PO TID PRN PRN Reason: Pain Discontinued Medications Aspirin (Aspirin) 324 mg PO ONETIME ONE Stop: 08/25/17 23:12 Last Admin: 08/25/17 23:26 Dose: 324 mg Aspirin (Aspirin) 324 mg PO ONETIME ONE Stop: 08/25/17 23:26 Last Admin: 08/25/17 23:26 Dose: Not Given - Exam General: Alert, Oriented HEENT: Mucous Membr. Moist/[place] Neck: Supple Lungs: Clear to Auscultation, Normal Respiratory Effort Cardiovascular: Regular Rate, Regular Rhythm GI/Abdominal Exam: Normal Bowel Sounds, Soft, Non-Tender Extremities: Normal Inspection, No Pedal Edema Skin: Warm, Dry Neurological: No New Focal Deficit - Problem List & Annotations (1) Chest pain SNOMED Code(s): 68179960 Code(s): R07.9 - CHEST PAIN, UNSPECIFIED Status: Acute Priority: High Current Visit: Yes (2) CAD (coronary artery disease) SNOMED Code(s): 49417963 Code(s): I25.10 - ATHSCL HEART DISEASE OF [place] CORONARY ARTERY W/O ANG PCTRS Status: Acute Priority: High Current Visit: Yes Qualifiers: Coronary Disease-Associated Artery/Lesion type: unspecified vessel or lesion type [place] vs. transplanted heart: unspecified whether [place] or transplanted heart Associated angina: with unspecified angina Qualified Code (s): I25.119 - Atherosclerotic heart disease of [place] coronary artery with unspecified angina pectoris (3) Status post coronary artery bypass graft SNOMED Code(s): 104882484, 596925074, 830594417 Code(s): Z95.1 - PRESENCE OF AORTOCORONARY BYPASS GRAFT Status: Acute Priority: High Current Visit: Yes - Problem List Review Problem List Initiated/Reviewed/Updated: Yes - My Orders Last 24 Hours: My Active Orders 08/27/17 09:00 Myocardial Perf Spect Multi [NM] Routine - Assessment Assessment:: Atypical chest pain H/O 2 vessel CABG - Plan Plan:: Patient continues to have intermittent bilateral chest discomfort that radiates up her shoulders and down her arms at times. Does relate that she also feels anxious due to her history of heart disease and CABG. She has done well since admission until this am, had an episode that lasted only a few minutes but was similar to last evening. Patient denies shortness of breath during episode. Serial enzymes have remained at an indeterminate range. No EKG changes through the night. Vital signs are stable. Did have elevated d-dimer but report reviewed and is negative for PE Will continue to monitor cardiac status due to ongoing intermittent pain. Plan for cardiolyte stress test tomorrow.
[2017-08-26] MEDS: Estradiol 1 MG Tab PO SCH ×2 (20:02→23:20)
[2017-08-27] MEDS: Levothyroxine 50 MCG Tab PO SCH (08:33)
[2017-08-27] MEDS: atorvaSTATin 20 MG Tab PO SCH (08:34)
[2017-08-27] MEDS: DULoxetine 30 MG Cap PO SCH (08:34)
[2017-08-27] MEDS: Estradiol 1 MG Tab PO SCH (08:34)
[2017-08-27] MEDS: Lisinopril 10 MG Tab PO SCH (11:48)
[2017-08-27 12:29] VITALS: BP 129/65
--- NOTE | 2017-08-27 17:42 | PCM.DCSUM1 ---
Discharge Summary - Hospital Course HPI Initial Comments: Ginger is a 76 year old female who was admitted to the hospital with c/o bilateral shoulder pain, radiating across her chest. She does have a history of double CABG. Her initial troponin was indeterminante range and her EKG showed T wave depression. D-dimer was elevated, however PE was ruled out. Chest CTA was negative. She was admitted observation for serial troponins and EKG. Troponin was checked throughout stay and remained low. No changes noted on repeat EKG. She did have a cardiolyte on the day of discharge. Results not available at time of discharge. Patient does struggle with severe anxiety and depression. She did have a few episodes during hospitalization where she would have a panic attack. Symptoms were improved by Xanax. We will increase her Cymbalta to 60 mg daily and her Xanax to 0.5 mg PO TID PRN panic attack. She will follow up with Dr. Benson next week. We will notify her of cardiolyte results once available. She is not interested in counseling at this time, but she will further discuss this with Dr. Benson, her PCP if she is interested in the future. - Discharge Data Discharge Date: 08/27/17 Discharge Disposition: Home, Self-Care 01 Condition: Good - Discharge Diagnosis/Problem(s) (1) Atypical chest pain SNOMED Code(s): 791493831 ICD Code: R07.89 - OTHER CHEST PAIN Status: Acute (2) CAD (coronary artery disease) SNOMED Code(s): 88590244 ICD Code: I25.10 - ATHSCL HEART DISEASE OF [place] CORONARY ARTERY W/O ANG PCTRS Status: Acute Priority: High Qualifiers: Coronary Disease-Associated Artery/Lesion type: unspecified vessel or lesion type [place] vs. transplanted heart: unspecified whether [place] or transplanted heart Associated angina: with unspecified angina Qualified Code (s): I25.119 - Atherosclerotic heart disease of [place] coronary artery with unspecified angina pectoris (3) Status post coronary artery bypass graft SNOMED Code(s): 663803593, 431552184, 390328618 ICD Code: Z95.1 - PRESENCE OF AORTOCORONARY BYPASS GRAFT Status: Acute Priority: High (4) Anxiety SNOMED Code(s): 56546959 ICD Code: F41.9 - ANXIETY DISORDER, UNSPECIFIED Status: Acute (5) Depression SNOMED Code(s): 67119982 ICD Code: F32.9 - MAJOR DEPRESSIVE DISORDER, SINGLE EPISODE, UNSPECIFIED Status: Acute Qualifiers: Depression Type: dysthymia Qualified Code(s): F34.1 - Dysthymic disorder - Patient Instructions Diet: Usual Diet as Tolerated Activity: As Tolerated Notify Provider of: Increased Pain - Discharge Plan Prescriptions/Med Rec: ALPRAZolam [Xanax] 0.5 mg PO TID PRN #20 tablet PRN Reason: Anxiety DULoxetine HCl [Cymbalta] 60 mg PO DAILY #30 capsule. Home Medications: Home Meds Biotin 1 mg PO DAILY 11/04/14 [History] Cholecalciferol (Vitamin D3) [Vitamin D3] 5,000 unit PO DAILY 11/04/14 [History] Cyanocobalamin (Vitamin B-12) [Vitamin B-12] 1,000 mcg PO DAILY 11/04/14 [ History] Levothyroxine 75 mcg PO ACBREAKFAST 11/04/14 [History] traMADol HCl [Tramadol HCl] 50 mg PO TID 11/04/14 [History] Metoprolol Tartrate 12.5 mg PO BID 02/05/17 [History] atorvaSTATin [Lipitor] 20 mg PO DAILY 02/05/17 [History] Lisinopril [Prinivil] 10 mg PO BID 30 Days #60 tablet 03/03/17 [Rx] Loperamide HCl [Anti-Diarrheal] 1 each PO QID PRN 03/17/17 [History] Magnesium 400 mg PO DAILY 03/17/17 [History] Estradiol 1 mg PO DAILY 08/25/17 [History] ALPRAZolam [Xanax] 0.5 mg PO TID PRN #20 tablet 08/27/17 [Rx] DULoxetine HCl [Cymbalta] 60 mg PO DAILY #30 capsule. 08/27/17 [Rx] Patient Handouts: Generalized Anxiety Disorder, Adult, Panic Attacks, Easy-to- Read Forms: ED Department Discharge Referrals: Conner Benson MD [Primary Care Provider] - - Patient Data Vitals - Most Recent: Last Vital Signs Temp 97.7 F 08/27/17 12:00 Pulse 66 08/27/17 12:00 Resp 16 08/27/17 12:00 BP 129/65 08/27/17 12:00 Pulse Ox 99 08/27/17 12:00 Weight - Most Recent: 130 lb Lab Results - Last 24 hrs: Laboratory Results - last 24 hr 08/26/17 Range/Units 18:50 Troponin I 0.193 H (0.00-0.06) ng/mL Med Orders - Current: Current Medications Acetaminophen (Tylenol) 650 mg PO Q4H PRN PRN Reason: Pain (Mild 1-3)/fever Last Admin: 08/26/17 18:10 Dose: 650 mg Albuterol/Ipratropium (Duoneb 3.0-0.5 Mg/3 Ml) 3 ml NEB Q4H PRN PRN Reason: Shortness Of Breath/wheezing Alprazolam (Xanax) 0.25 mg PO TID PRN PRN Reason: Anxiety Last Admin: 08/26/17 23:15 Dose: 0.25 mg Atorvastatin Calcium (Lipitor) 20 mg PO DAILY [facility] Last Admin: 08/27/17 08:34 Dose: 20 mg Duloxetine HCl (Cymbalta) 30 mg PO DAILY [facility] Last Admin: 08/27/17 08:34 Dose: 30 mg Enoxaparin Sodium (Lovenox) 40 mg SUBCUT Q24H [facility] Last Admin: 08/26/17 23:15 Dose: 40 mg Estradiol (Estradiol) 1 mg PO DAILY [facility] Last Admin: 08/27/17 08:34 Dose: Not Given Levothyroxine Sodium (Synthroid) 75 mcg PO ACBREAKFAST [facility] Last Admin: 08/27/17 08:33 Dose: 75 mcg Lisinopril (Prinivil) 10 mg PO BID [facility] Last Admin: 08/27/17 11:48 Dose: 10 mg Magnesium Hydroxide (Milk Of Magnesia) 30 ml PO Q12H PRN PRN Reason: Constipation Metoprolol Tartrate (Lopressor) 12.5 mg PO BID [facility] Last Admin: 08/26/17 20:36 Dose: 12.5 mg Metoprolol Tartrate (Lopressor) 2.5 mg IVPUSH Q4H PRN PRN Reason: Hypertension Morphine Sulfate (Morphine) 2 mg IVPUSH Q2H PRN PRN Reason: Pain (severe 7-10) Last Admin: 08/26/17 18:38 Dose: 2 mg Sodium Chloride (Saline Flush) 10 ml FLUSH ASDIRECTED PRN PRN Reason: Keep Vein Open Temazepam (Restoril) 15 mg PO BEDTIME PRN PRN Reason: Sleep Tramadol HCl (Ultram) 50 mg PO TID PRN PRN Reason: Pain Discontinued Medications Aspirin (Aspirin) 324 mg PO ONETIME ONE Stop: 08/25/17 23:12 Last Admin: 08/25/17 23:26 Dose: 324 mg Aspirin (Aspirin) 324 mg PO ONETIME ONE Stop: 08/25/17 23:26 Last Admin: 08/25/17 23:26 Dose: Not Given
--- NOTE | 2017-08-29 02:03 | OR ---
DATE OF OPERATION: 08/27/2017 CARDIOLITE STRESS TEST INTERPRETATION May Pastor administered Cardiolite stress test on this patient of Dr. Benson for atypical chest pain. This is the interpretation portion. The patient was able to exercise for total time of 2 minutes and 58 seconds and only treadmill stage I, she achieved a max heart rate of 131, max BP of 150/80, both were appropriate responses. Her total max workload was 4.6 mets. At maximal exercise, the patient had no exercise-induced arrhythmias. All ST segments appeared to be flat, upsloping without any signs of ischemia. Overall, this is an adequate and negative telemetry portion of a Cardiolite. Tracer was given appropriately and images will be forthcoming. GUS/ELA /[id number]
--- NOTE | 2017-08-31 14:51 | OR ---
DATE OF OPERATION: 08/27/2017 Mrs. Ginger Kim is a patient of Dr. Benson, who was sent for a Cardiolite stress test due to some chest pain that she had been having and also history of cardiac bypass surgery in 12/2016. The patient was exercised using standard Ortiz protocol for a total of 3 minutes. She was able to exercise going into the treadmill stage I. The test was stopped due to her achieving her target heart rate. Maximum blood pressure was 138/86, maximum heart rate was 129 from a target of 123. At maximal exercise, the patient did not have any arrhythmias or chest pain. Cardiolite tracer was given appropriately and images will be forthcoming, and she will be followed up with Dr. Benson. HAMZAH/ELA /[id number]
== END 2017-08-27 17:58 | disposition home or self-care (01) ==
LOC: CC.ED 21:50 → CC.MS 23:00 → UNDOADMOB 23:00 → CC.MS 23:07
PROVIDERS: ADMIT Nurse Practitioner Family; ATTEND General Practice
DX: I25.119 Atherosclerotic heart disease of native coronary artery with unspecified angina pectoris (principal); F41.9 Anxiety disorder, unspecified; F32.9 Major depressive disorder, single episode, unspecified; I10 Essential (primary) hypertension; E78.5 Hyperlipidemia, unspecified; E03.9 Hypothyroidism, unspecified; M19.90 Unspecified osteoarthritis, unspecified site; Z95.1 Presence of aortocoronary bypass graft; Z79.899 Other long term (current) drug therapy; Z88.8 Allergy status to other drugs, medicaments and biological substances
CPT/HCPCS: 36415; 71275; 78452; 80053; 82550; 83615; 84484; 85025; 85379; 86140; 93005; 93010; 93017; 96372; 96374; 99217; 99220; 99225; 99285; A9270; A9500; G0378; J1650; J2270; Q9967

== ENCOUNTER 2017-11-03 22:58 | Observation (INO) | payer MEDICARE, BC ==
[2017-11-03] MEDS: Aspirin 81 MG Tab.Chew PO ONE (23:00)
--- NOTE | 2017-11-04 00:09 | EDM.PDOC ---
ED HPI GENERAL MEDICAL PROBLEM - General Chief Complaint: Chest Pain Stated Complaint: shortness of breath Time Seen by Provider: 11/03/17 23:20 Source of Information: Reports: Patient History Limitations: Reports: No Limitations - History of Present Illness INITIAL COMMENTS - FREE TEXT/NARRATIVE: Patient presents to ER with a 2 day history of intermittent left arm pain. States this evening was experiencing a tightness to her left upper arm, "like someone was grasping the arm and squeezing" with radiation up to her neck. She relates that she has had pain like this prior to her last bypass surgery. Has had 2 open heart surgeries in the last 9 months. States 2nd surgery was 6 weeks ago. She relates that it was a result of the first one failing so she is worried that that may be happening again. She contacted [facility] spoke with them, they advised her to be seen. She took a nitro at home and now the pain is gone. She has been experiencing shortness of breath for the last month, did tell Dr. Rebollar, her heart surgeon and they are just watching this. Onset: Gradual Duration: Day(s): Location: Reports: Chest Quality: Reports: Ache Severity: Moderate Improves with: Reports: Medication Associated Symptoms: Reports: Chest Pain, Shortness of Breath. Denies: Cough, Diaphoresis, Fever/Chills, Loss of Appetite, Malaise, Nausea/Vomiting, Syncope, Weakness Treatments [employer]: Reports: Nitroglycerin - Related Data Allergies Allergy/AdvReac Type Severity Reaction Status Date / Time sulfasalazine [Sulfasalazine] Allergy Mild Rash Verified 08/25/17 21:57 Dairy Products Allergy Other Verified 11/03/17 23:18 lorazepam Allergy Headache Verified 11/03/17 23:18 dairy Allergy Other Uncoded 11/03/17 23:18 Home Meds: Home Meds Biotin 1 mg PO DAILY 11/04/14 [History] Cholecalciferol (Vitamin D3) [Vitamin D3] 5,000 unit PO DAILY 11/04/14 [History] Cyanocobalamin (Vitamin B-12) [Vitamin B-12] 1,000 mcg PO DAILY 11/04/14 [ History] Levothyroxine 75 mcg PO ACBREAKFAST 11/04/14 [History] traMADol HCl [Tramadol HCl] 100 mg PO TID PRN 11/04/14 [History] atorvaSTATin [Lipitor] 20 mg PO DAILY 02/05/17 [History] Loperamide HCl [Anti-Diarrheal] 1 each PO QID PRN 03/17/17 [History] Magnesium 400 mg PO DAILY 03/17/17 [History] Estradiol 1 mg PO DAILY 08/25/17 [History] ALPRAZolam [Xanax] 0.5 mg PO TID PRN #20 tablet 08/27/17 [Rx] DULoxetine HCl [Cymbalta] 60 mg PO DAILY #30 capsule. 08/27/17 [Rx] Aspirin [Ecotrin] 81 mg PO DAILY 11/03/17 [History] Clopidogrel [Plavix] 75 mg PO DAILY 11/03/17 [History] Nitroglycerin [Nitrostat] 0.4 mg SL ASDIRECTED PRN 11/03/17 [History] Past Medical History HEENT History: Reports: Cataract Cardiovascular History: Reports: Angina, Bypass, High Cholesterol, Hypertension , Pacemaker, SOB on Exertion Other Cardiovascular History: MYOCARDITIS; hypercholesterolemia, hypothyrodism, essential hypertension, sick sinus syndrome, diverticulitis with resection, encephalopathy, Gastrointestinal History: Reports: Diverticulosis Genitourinary History: Reports: Other (See Below) Other Genitourinary History: bladder repair [employer] History: Reports: Dysfunctional Uterine Bleeding Psychiatric History: Reports: Anxiety, Depression Endocrine/Metabolic History: Reports: Hypothyroidism Other Endocrine/Metabolic History: HYPOGLYCEMIA - Past Surgical History HEENT Surgical History: Reports: Cataract Surgery Cardiovascular Surgical History: Reports: Carotid Stents, Coronary Artery Bypass Other Cardiovascular Surgeries/Procedures: [facility] has been seeing her, will discharge her on 01-30-17; drove to rehab today; has appt with cardiology on 02-02-17; has had one postop appt already. angio 12-19-16, discharged on ; daughter in law stayed with her in her home for a few days; c/o fatigue for awhile, SOB, saw Dr. Benson for a physical, had a stress test, referred to Dr Longo in [place]. She said he did not recommend an angiogram; so Dr. Benson sent her to [place]. Had a pacemaker inserted years ago. Has a history of knee and ankle discomfort--arthritis; since CABG: SOB improving, appetite good, dietitian brought diet pamphlets to her room, not sure that she wants to see a dietitian, knows what to eat, left leg incision and chest incision healing; denies dizziness, denies insomnia. GI Surgical History: Reports: Appendectomy, Other (See Below) Other GI Surgeries/Procedures: LAP TOÑO. color resection Female Surgical History: Reports: Hysterectomy Musculoskeletal Surgical History: Reports: Other (See Below) Other Musculoskeletal Surgeries/Procedures:: KNEE SURGERY Social & Family History - Family History Family Medical History: Noncontributory - Tobacco Use Smoking Status *Q: Never Smoker - Caffeine Use Caffeine Use: Reports: Soda Caffeine Use Comment: 1 diet coke/day. Discussed ED ROS GENERAL - Review of Systems Review Of Systems: See Below Constitutional: Reports: Fatigue. Denies: Fever, Chills, Malaise, Weakness, Diaphoresis, Decreased Appetite HEENT: Reports: No Symptoms Respiratory: Reports: Shortness of Breath. Denies: Cough Cardiovascular: Reports: Chest Pain. Denies: Edema, Lightheadedness Endocrine: Denies: Fatigue GI/Abdominal: Denies: Abdominal Pain, Nausea, Vomiting : Reports: No Symptoms Musculoskeletal: Reports: No Symptoms Skin: Reports: Other (chest incision) Neurological: Reports: No Symptoms Psychiatric: Reports: No Symptoms ED EXAM, GENERAL - Physical Exam Exam: See Below Exam Limited By: No Limitations General Appearance: Alert, WD/WN, No Apparent Distress Ears: Normal External Exam, Normal TMs Nose: Normal Inspection, Normal Mucosa, No Blood Throat/Mouth: Normal Inspection, Normal Oropharynx Head: Normocephalic Neck: Normal Inspection, Supple, Non-Tender Respiratory/Chest: No Respiratory Distress, Lungs Clear, Normal Breath Sounds Cardiovascular: Regular Rate, Rhythm GI/Abdominal: Normal Bowel Sounds, Soft, Non-Tender Extremities: Normal Inspection, Normal Range of Motion Neurological: Alert, Oriented Skin Exam: Warm, Dry Course - Vital Signs Last Recorded V/S: Last Vital Signs Temp 98.1 F 11/03/17 23:00 Pulse 80 11/03/17 23:00 Resp 16 11/03/17 23:00 BP 150/87 H 11/03/17 23:00 Pulse Ox 97 11/03/17 23:00 - Orders/Labs/Meds Orders: Active Orders 24 hr Category Date Time Status Patient Status Manage Transfer [TRANSFER] Routine ADT 11/03/17 23:37 Ordered EKG Documentation Completion [RC] STAT Care 11/03/17 23:02 Active CXR [Chest 2V] [CR] Stat Exams 11/03/17 23:02 Taken Resuscitation Status Routine Resus Stat 11/03/17 23:38 Ordered Labs: Laboratory Tests 11/03/17 11/03/17 11/03/17 Range/Units 23:10 23:10 23:10 WBC 7.1 (5.0-10.0) 10^3/uL RBC 3.63 L (4.00-5.50) 10^6/uL Hgb 11.6 L (12.0-16.0) g/dL Hct 35.4 L (37.0-47.0) % MCV 97.5 H (82.0-94.0) fL MCH 32.0 (27.0-32.0) pg MCHC 32.8 L (33.0-38.0) g/dL RDW Coeff of Eduardo 13.0 (11.0-15.0) % Plt Count 275 (150-400) 10^3/uL Neut % (Auto) 52.5 (35-85) % Lymph % (Auto) 30.8 (10-55) % [place] % (Auto) 13.0 (0-16) % Eos % (Auto) 3.4 (0-5) % Baso % (Auto) 0.3 (0-3) % Neut # (Auto) 3.72 (1.80-7.00) 10^3/uL Lymph # (Auto) 2.18 (1.00-4.80) 10^3/uL [place] # (Auto) 0.92 H (0.00-0.80) 10^3/uL Eos # (Auto) 0.24 (0.00-0.45) 10^3/uL Baso # (Auto) 0.02 10^3/uL PT 9.9 (9.7-12.3) SEC INR 0.95 (0.92-1.18) APTT 25.0 (23.2-32.3) SEC Sodium 136 (136-145) mEq/L Potassium 4.1 (3.5-5.0) mEq/L Chloride 99 (98-106) mEq/L Carbon Dioxide 32 (21-32) mmol/L BUN 19 H (7-18) mg/dL Creatinine 1.1 H (0.6-1.0) mg/dL Est Cr Clr Drug Dosing 37.57 mL/min Estimated GFR (MDRD) 48 L (>=60) mL/min Glucose 76 D (75-99) mg/dL Calcium 8.5 (8.4-10.1) mg/dL Lactate Dehydrogenase 183 (100-190) U/L Creatine Kinase 57 (21-215) U/L Troponin I 0.082 H (0.00-0.06) ng/mL Meds: Medications Discontinued Medications Generic Name Dose Route Start Last Admin Trade Name Freq PRN Reason Stop Dose Admin Aspirin 324 mg 11/03/17 23:00 11/03/17 23:00 Aspirin PO 11/03/17 23:01 324 mg ONETIME ONE Administration - Re-Assessments/Exams Free Text/Narrative Re-Assessment/Exam: 11/04/17 Lab results reviewed. Troponin is indeterminate at this time. Will admit observation with repeat enzymes in am. Patient aware and agrees with plan Departure - Departure Time of Disposition: 00:16 Disposition: Refer to Observation Condition: Good Clinical Impression: Chest pain - Problem List & Annotations (1) Chest pain SNOMED Code(s): 33344849 Code(s): R07.9 - CHEST PAIN, UNSPECIFIED Status: Acute Priority: High Current Visit: Yes - Problem List Review Problem List Initiated/Reviewed/Updated: Yes - My Orders Last 24 Hours: My Active Orders 11/03/17 23:02 EKG Documentation Completion [RC] STAT CXR [Chest 2V] [CR] Stat 11/03/17 23:37 Patient Status Manage Transfer [TRANSFER] Routine 11/03/17 23:38 Resuscitation Status Routine - Assessment/Plan Admission H&P: Please use this note as an admission H&P Last 24 Hours: My Active Orders 11/03/17 23:02 EKG Documentation Completion [RC] STAT CXR [Chest 2V] [CR] Stat 11/03/17 23:37 Patient Status Manage Transfer [TRANSFER] Routine 11/03/17 23:38 Resuscitation Status Routine Assessment:: Chest Pain s/p CABG Plan: Admit observation to Dr. Chen. Will repeat cardiac enzymes and EKG in am and contact cardiology as needed.
[2017-11-04] MEDS ORDERED: Acetaminophen 325 MG Tab PO PRN (00:24)
[2017-11-04] MEDS ORDERED: Nitroglycerin 0.4 MG Tab.SL SL PRN (00:24)
[2017-11-04] MEDS ORDERED: Ondansetron 4 MG Tab.DIS PO PRN (00:24)
[2017-11-04] MEDS ORDERED: Sodium Chloride 0.9% 10 ML Syringe FLUSH PRN (00:24)
[2017-11-04] MEDS ORDERED: Temazepam 15 MG Cap PO PRN (00:24)
[2017-11-04] MEDS ORDERED: ALPRAZolam 0.5 MG Tab.DIS (ODT) PO PRN (00:45)
[2017-11-04] MEDS: Enoxaparin 40 MG/0.4 ML Syringe SUBCUT SCH (01:49)
[2017-11-04 07:23] LABS: CHLORIDE,CL 102 mEq/L (98-106); SODIUM,NA 138 mEq/L (136-145)
[2017-11-04] MEDS: Levothyroxine 50 MCG Tab PO SCH (11:08)
[2017-11-04] MEDS: atorvaSTATin 20 MG Tab PO SCH (11:09)
[2017-11-04] MEDS: Clopidogrel 75 MG Tab PO SCH (11:09)
[2017-11-04] MEDS: Cholecalciferol (Vitamin D3) 1,000 Unit Tab PO SCH (11:10)
[2017-11-04] MEDS: Isosorbide Mononitrate 60 MG Tab.ER PO SCH (11:10)
[2017-11-04] MEDS: traMADol 50 MG Tab PO PRN (11:12)
[2017-11-04] MEDS: Metoprolol Tartrate 25 MG Tab PO SCH (11:12)
[2017-11-04 11:56] VITALS: BP 138/68
--- NOTE | 2017-11-04 14:30 | PCM.DCSUM1 ---
Discharge Summary - Hospital Course Free Text/Narrative:: Patient presented to ER last evening with complaints of intermittent chest pain with left arm and jaw pain. Pain had 2 vessel bypass on September [address] Rebollar at [facility]. This was the second bypass surgery, first one done 9 months ago and the grafts had failed. She notes she has been short of breath since surgery , surgeon aware. Did take one nitro at home and pain was relieved. Labs last night showed an indeterminate troponin at 0.082. Admitted for serial enzymes and monitoring. - Discharge Data Discharge Date: 11/04/17 Discharge Disposition: Home, Self-Care 01 Condition: Good - Discharge Diagnosis/Problem(s) (1) Chest pain SNOMED Code(s): 80600345 ICD Code: R07.9 - CHEST PAIN, UNSPECIFIED Status: Acute Priority: High Current Visit: Yes - Patient Summary/Data Complications: none Hospital Course: Patient has been pain free since admission. Serial enzymes completed, troponin did rise this am to 0.112. Contacted Dr. Chambers, credit reporter at [place] [facility]. Recommended starting ImDur and repeating enzymes at 1 pm today. Enzymes repeated and are coming down, noted 0.105. As trending down, cardiology feels safe to discharge. Will continue on ImDur. Scheduled to start cardiac rehab tomorrow. Will arrange follow up with Dr. Madera as well tomorrow. - Patient Instructions Diet: Usual Diet as Tolerated Activity: As Tolerated Other/Special Instructions: Follow up with cardiac rehab as planned. Have Marguerite arrange with clinic nurses for follow up appointment with Dr. Madera - Discharge Plan Prescriptions/Med Rec: Isosorbide Mononitrate [Imdur] 60 mg PO DAILY #30 tab.er Home Medications: Home Meds Biotin 1 mg PO DAILY 11/04/14 [History] Cholecalciferol (Vitamin D3) [Vitamin D3] 5,000 unit PO DAILY 11/04/14 [History] Cyanocobalamin (Vitamin B-12) [Vitamin B-12] 1,000 mcg PO DAILY 11/04/14 [ History] Levothyroxine 75 mcg PO ACBREAKFAST 11/04/14 [History] traMADol HCl [Tramadol HCl] 100 mg PO TID PRN 11/04/14 [History] atorvaSTATin [Lipitor] 20 mg PO DAILY 02/05/17 [History] Loperamide HCl [Anti-Diarrheal] 1 each PO QID PRN 03/17/17 [History] Magnesium 400 mg PO DAILY 03/17/17 [History] Estradiol 1 mg PO DAILY 08/25/17 [History] ALPRAZolam [Xanax] 0.5 mg PO TID PRN #20 tablet 08/27/17 [Rx] DULoxetine HCl [Cymbalta] 60 mg PO DAILY #30 capsule. 08/27/17 [Rx] Aspirin [Ecotrin] 81 mg PO DAILY 11/03/17 [History] Clopidogrel [Plavix] 75 mg PO DAILY 11/03/17 [History] Nitroglycerin [Nitrostat] 0.4 mg SL ASDIRECTED PRN 11/03/17 [History] Isosorbide Mononitrate [Imdur] 60 mg PO DAILY #30 tab.er 11/04/17 [Rx] Metoprolol Tartrate 12.5 mg PO BID 11/04/17 [History] Forms: ED Department Discharge - Discharge Summary/Plan Comment DC Time >30 min.: No Discharge Summary/Plan Comment: Discharge home Continue usual meds Start Imdur Follow with cardiology - General Info Date of Service: 11/04/17 Admission Dx/Problem (Free Text: chest pain s/p CABG Functional Status: Reports: Pain Controlled, Tolerating Diet, Ambulating - Review of Systems General: Denies: Fever, Weakness, Fatigue HEENT: Reports: No Symptoms Pulmonary: Reports: Shortness of Breath. Denies: Cough Cardiovascular: Denies: Chest Pain, Edema, Lightheadedness Gastrointestinal: Denies: Abdominal Pain, Nausea, Vomiting Genitourinary: Reports: No Symptoms Musculoskeletal: Reports: No Symptoms Skin: Reports: No Symptoms Neurological: Reports: No Symptoms Psychiatric: Reports: No Symptoms - Patient Data Vitals - Most Recent: Last Vital Signs Temp 96.9 F 11/04/17 11:55 Pulse 70 11/04/17 11:55 Resp 20 11/04/17 11:55 BP 138/68 11/04/17 11:55 Pulse Ox 97 11/04/17 11:55 Weight - Most Recent: 127 lb Lab Results - Last 24 hrs: Laboratory Results - last 24 hr 11/03/17 11/03/17 11/03/17 Range/Units 23:10 23:10 23:10 WBC 7.1 (5.0-10.0) 10^3/uL RBC 3.63 L (4.00-5.50) 10^6/uL Hgb 11.6 L (12.0-16.0) g/dL Hct 35.4 L (37.0-47.0) % MCV 97.5 H (82.0-94.0) fL MCH 32.0 (27.0-32.0) pg MCHC 32.8 L (33.0-38.0) g/dL RDW Coeff of Eduardo 13.0 (11.0-15.0) % Plt Count 275 (150-400) 10^3/uL MPV fL Neut % (Auto) 52.5 (35-85) % Lymph % (Auto) 30.8 (10-55) % [place] % (Auto) 13.0 (0-16) % Eos % (Auto) 3.4 (0-5) % Baso % (Auto) 0.3 (0-3) % Neut # (Auto) 3.72 (1.80-7.00) 10^3/uL Lymph # (Auto) 2.18 (1.00-4.80) 10^3/uL [place] # (Auto) 0.92 H (0.00-0.80) 10^3/uL Eos # (Auto) 0.24 (0.00-0.45) 10^3/uL Baso # (Auto) 0.02 10^3/uL PT 9.9 (9.7-12.3) SEC INR 0.95 (0.92-1.18) APTT 25.0 (23.2-32.3) SEC Sodium 136 (136-145) mEq/L Potassium 4.1 (3.5-5.0) mEq/L Chloride 99 (98-106) mEq/L Carbon Dioxide 32 (21-32) mmol/L BUN 19 H (7-18) mg/dL Creatinine 1.1 H (0.6-1.0) mg/dL Est Cr Clr Drug Dosing 37.57 mL/min Estimated GFR (MDRD) 48 L (>=60) mL/min Glucose 76 D (75-99) mg/dL Calcium 8.5 (8.4-10.1) mg/dL Lactate Dehydrogenase 183 (100-190) U/L Creatine Kinase 57 (21-215) U/L Troponin I 0.082 H (0.00-0.06) ng/mL 11/04/17 11/04/17 11/04/17 Range/Units 06:55 06:55 13:05 WBC 5.5 (5.0-10.0) 10^3/uL RBC 3.69 L (4.00-5.50) 10^6/uL Hgb 11.7 L (12.0-16.0) g/dL Hct 35.6 L (37.0-47.0) % MCV 96.5 H (82.0-94.0) fL MCH 31.7 (27.0-32.0) pg MCHC 32.9 L (33.0-38.0) g/dL RDW Coeff of Eduardo 12.9 (11.0-15.0) % Plt Count 259 (150-400) 10^3/uL MPV 9.3 fL Neut % (Auto) (35-85) % Lymph % (Auto) (10-55) % [place] % (Auto) (0-16) % Eos % (Auto) (0-5) % Baso % (Auto) (0-3) % Neut # (Auto) (1.80-7.00) 10^3/uL Lymph # (Auto) (1.00-4.80) 10^3/uL [place] # (Auto) (0.00-0.80) 10^3/uL Eos # (Auto) (0.00-0.45) 10^3/uL Baso # (Auto) 10^3/uL PT (9.7-12.3) SEC INR (0.92-1.18) APTT (23.2-32.3) SEC Sodium 138 (136-145) mEq/L Potassium 3.9 (3.5-5.0) mEq/L Chloride 102 (98-106) mEq/L Carbon Dioxide 30 (21-32) mmol/L BUN 16 (7-18) mg/dL Creatinine 0.9 (0.6-1.0) mg/dL Est Cr Clr Drug Dosing 42.06 mL/min Estimated GFR (MDRD) > 60 (>=60) mL/min Glucose 80 (75-99) mg/dL Calcium 8.5 (8.4-10.1) mg/dL Lactate Dehydrogenase (100-190) U/L Creatine Kinase (21-215) U/L Troponin I 0.112 H 0.105 H (0.00-0.06) ng/mL Med Orders - Current: Current Medications Acetaminophen (Tylenol) 650 mg PO Q4H PRN PRN Reason: Pain (Mild 1-3)/fever Alprazolam (Alprazolam Odt) 0.5 mg PO TID PRN PRN Reason: Anxiety Aspirin (Halfprin) 81 mg PO BEDTIME [facility] Atorvastatin Calcium (Lipitor) 20 mg PO DAILY [facility] Last Admin: 11/04/17 11:09 Dose: 20 mg Cholecalciferol (Vitamin D3) 5,000 units PO DAILY [facility] Last Admin: 11/04/17 11:10 Dose: 5,000 units Clopidogrel Bisulfate (Plavix) 75 mg PO DAILY [facility] Last Admin: 11/04/17 11:09 Dose: 75 mg Duloxetine HCl (Cymbalta) 60 mg PO BEDTIME [facility] Enoxaparin Sodium (Lovenox) 40 mg SUBCUT Q24H [facility] Last Admin: 11/04/17 01:49 Dose: 40 mg Estradiol (Estradiol) 1 mg PO BEDTIME [facility] Isosorbide Mononitrate (Imdur) 60 mg PO DAILY [facility] Last Admin: 11/04/17 11:10 Dose: 60 mg Levothyroxine Sodium (Synthroid) 75 mcg PO ACBREAKFAST [facility] Last Admin: 11/04/17 11:08 Dose: 75 mcg Magnesium Oxide (Magnesium Oxide) 500 mg PO DAILY [facility] Last Admin: 11/04/17 11:09 Dose: Not Given Metoprolol Tartrate (Lopressor) 12.5 mg PO BID [facility] Last Admin: 11/04/17 11:12 Dose: 12.5 mg Nitroglycerin (Nitrostat) 0.4 mg SL ASDIRECTED PRN PRN Reason: Chest Pain Ondansetron HCl (Zofran Odt) 4 mg PO Q4H PRN PRN Reason: nausea, able to take PO Sodium Chloride (Saline Flush) 10 ml FLUSH ASDIRECTED PRN PRN Reason: Keep Vein Open Temazepam (Restoril) 15 mg PO BEDTIME PRN PRN Reason: Sleep Tramadol HCl (Ultram) 100 mg PO TID PRN PRN Reason: Pain Last Admin: 11/04/17 11:12 Dose: 100 mg Discontinued Medications Aspirin (Aspirin) 324 mg PO ONETIME ONE Stop: 11/03/17 23:01 Last Admin: 11/03/17 23:00 Dose: 324 mg Aspirin (Halfprin) 81 mg PO DAILY [facility] Duloxetine HCl (Cymbalta) 60 mg PO DAILY [facility] Estradiol (Estradiol) 1 mg PO DAILY KRISSY - Exam General: Reports: Alert, Oriented HEENT: Reports: Mucous Membr. Moist/[place] Neck: Reports: Supple Lungs: Reports: Clear to Auscultation, Normal Respiratory Effort Cardiovascular: Reports: Regular Rate, Regular Rhythm GI/Abdominal Exam: Normal Bowel Sounds, Soft, Non-Tender Extremities: Normal Inspection, No Pedal Edema Skin: Reports: Warm, Dry Neurological: Reports: No New Focal Deficit
[2017-11-04] MEDS: Aspirin 81 MG Tab.EC PO SCH (15:14)
[2017-11-04] MEDS: Estradiol 1 MG Tab PO SCH (15:15)
[2017-11-04] MEDS: DULoxetine 30 MG Cap PO SCH (15:15)
[2017-11-04] MEDS ORDERED: Estradiol 1 MG Tab PO SCH (20:00)
[2017-11-04] MEDS ORDERED: Aspirin 81 MG Tab.EC PO SCH (20:00)
[2017-11-04] MEDS ORDERED: DULoxetine 30 MG Cap PO SCH (20:00)
== END 2017-11-04 14:23 | disposition home or self-care (01) ==
LOC: CC.ED 22:58 → CC.MS 23:38 → UNDOADMOB 23:58 → UNDODISOB 11-04 14:23
PROVIDERS: ADMIT Physician Assistant Medical; ATTEND Family Medicine
DX: R07.9 Chest pain, unspecified (principal); I10 Essential (primary) hypertension; Z95.1 Presence of aortocoronary bypass graft; R68.84 Jaw pain; M79.602 Pain in left arm; E78.00 Pure hypercholesterolemia, unspecified; Z95.0 Presence of cardiac pacemaker; E03.9 Hypothyroidism, unspecified; I49.5 Sick sinus syndrome; F41.9 Anxiety disorder, unspecified; F32.9 Major depressive disorder, single episode, unspecified; Z79.82 Long term (current) use of aspirin; Z79.899 Other long term (current) drug therapy; Z88.2 Allergy status to sulfonamides; Z88.8 Allergy status to other drugs, medicaments and biological substances; Z91.011 Allergy to milk products
CPT/HCPCS: 36415; 71046; 80048; 82550; 83615; 84484; 85025; 85027; 85610; 85730; 93005; 99285; A9270-GY; J1650

== ENCOUNTER 2018-05-15 22:21 | Emergency (ER) | payer MEDICARE, BC ==
--- NOTE | 2018-05-15 22:39 | EDM.PDOC ---
ED HPI GENERAL MEDICAL PROBLEM - General Chief Complaint: Chest Pain Stated Complaint: Chest pain Time Seen by Provider: 05/15/18 22:21 Source of Information: Reports: Patient History Limitations: Reports: No Limitations - History of Present Illness INITIAL COMMENTS - FREE TEXT/NARRATIVE: This patient is a 77 year old female that presents to the ER. Patient reports that started yesterday evening she had an episode that lasted several minutes. She reports then tonight she had two separate episodes that lasted several minutes each. She reports that the pain begins in both of her anterior shoulders at the same time, than goes into her central chest. The patient reports that during the pain she was waling and also had nausea ands shortness of breath. She reports that laying in the ER her pain is now a 1/10. She reports when she had the episodes of chest pain it was a 9 1/2 out of 10. The patient reports she did take 4 nitro this evening, after taking the nitro she had a headache. She reports that the nitro helped her pain in her chest. The patient also reports that she was seen by her PCP for bilateral shoulder pain that she has had chronically. She reports her PCP gave her bilateral steroid injections in the shoulders. She reports that her CP is not made worse by ROM of the shoulder, chest, or palpation of the area. The patient denies dizziness, neck pain, neck stiffness, back pain, v, d, f, rash, abd pain, urinary/bowel changes. Patient is alert and oriented. Patient reports she does not smoke. She denies alcohol use. She denies history of an DC. She reports having a pacemaker. She reports 2 vessel bypass x2. She reports first one done in December 2016, then had to repeat the same vessels September 2017. She reports that her surgeries and dowel inspector are in [facility]. She reports that she has seen her dowel inspector for these same chest pains in the past. Onset Date: 05/14/18 Location: Reports: Chest Quality: Reports: Pressure Severity: Severe Improves with: Reports: None Worsens with: Reports: None Associated Symptoms: Reports: Chest Pain, Headaches (after nitro), Nausea/ Vomiting, Shortness of Breath. Denies: Confusion, Cough, cough w sputum, Diaphoresis, Fever/Chills, Loss of Appetite, Malaise, Rash, Seizure, Syncope, Weakness Treatments FLIGHT CONTROL MANAGER: Reports: Nitroglycerin Chest Pain Score (Numeric/FACES): 1 - Related Data Allergies Allergy/AdvReac Type Severity Reaction Status Date / Time sulfasalazine [Sulfasalazine] Allergy Mild Rash Verified 05/15/18 22:32 clopidogrel [From Plavix] Allergy Shortness Verified 05/15/18 22:32 of Breath Dairy Products Allergy Other Verified 05/15/18 22:32 lorazepam Allergy Headache Verified 05/15/18 22:32 dairy Allergy Other Uncoded 05/15/18 22:32 Home Meds: Home Meds Biotin 1 mg PO DAILY 11/04/14 [History] Cholecalciferol (Vitamin D3) [Vitamin D3] 5,000 unit PO BEDTIME 11/04/14 [ History] Cyanocobalamin (Vitamin B-12) [Vitamin B-12] 1,000 mcg PO BEDTIME 11/04/14 [ History] Levothyroxine 75 mcg PO ACBREAKFAST 11/04/14 [History] traMADol HCl [Tramadol HCl] 100 mg PO BID PRN 11/04/14 [History] atorvaSTATin [Lipitor] 40 mg PO DAILY 02/05/17 [History] Magnesium 400 mg PO DAILY 03/17/17 [History] Aspirin [Ecotrin] 81 mg PO BEDTIME 11/03/17 [History] Nitroglycerin [Nitrostat] 0.4 mg SL ASDIRECTED PRN 11/03/17 [History] Metoprolol Tartrate 12.5 mg PO BID 11/04/17 [History] ALPRAZolam [Xanax] 0.25 mg PO TID PRN 11/19/17 [History] DULoxetine HCl [Cymbalta] 60 mg PO BEDTIME 12/05/17 [History] Isosorbide Mononitrate [Imdur] 60 mg PO BID 12/05/17 [History] Loperamide [Imodium] 2 mg PO QID PRN 12/08/17 [History] Ticagrelor [Brilinta] 90 mg PO BID 12/08/17 [History] hydroCHLOROthiazide [Hydrochlorothiazide] 25 mg PO DAILY 03/05/18 [History] Past Medical History HEENT History: Reports: Cataract Cardiovascular History: Reports: Angina, Bypass, High Cholesterol, Hypertension , Pacemaker, SOB on Exertion Other Cardiovascular History: MYOCARDITIS; hypercholesterolemia, hypothyrodism, essential hypertension, sick sinus syndrome, diverticulitis with resection, encephalopathy, Gastrointestinal History: Reports: Diverticulosis Genitourinary History: Reports: Other (See Below) Other Genitourinary History: bladder repair LAG SCREWER History: Reports: Dysfunctional Uterine Bleeding Psychiatric History: Reports: Anxiety, Depression Endocrine/Metabolic History: Reports: Hypothyroidism Other Endocrine/Metabolic History: HYPOGLYCEMIA - Past Surgical History HEENT Surgical History: Reports: Cataract Surgery Cardiovascular Surgical History: Reports: Carotid Stents, Coronary Artery Bypass Other Cardiovascular Surgeries/Procedures: home health has been seeing her, will discharge her on 01-30-17; drove to rehab today; has appt with cardiology on 02-02-17; has had one postop appt already. angio 12-19-16, discharged on ; daughter in law stayed with her in her home for a few days; c/o fatigue for awhile, SOB, saw Dr. Zapien for a physical, had a stress test, referred to Dr Longo in [place]. She said he did not recommend an angiogram; so Dr. Zapien sent her to [place]. Had a pacemaker inserted years ago. Has a history of knee and ankle discomfort--arthritis; since CABG: SOB improving, appetite good, dietitian brought diet pamphlets to her room, not sure that she wants to see a dietitian, knows what to eat, left leg incision and chest incision healing; denies dizziness, denies insomnia. 11-05-17: redo CABG 09-17-17; had arm pain, was sent to cardiology; said that the previous CABG grafts were blocked. Did not come to Cardiac rehab previous to this because she had PT and home health coming to see her. They are done now. Since this CABG, she saw the surgeon, Dr. zapien x2, and went to ER a few days ago in [place] due to SOB; is driving now , and independent at home. Since CABG: has some arm pain, like squeezing but not like before, has told the doctors about this; has been SOB; denies ankle edema; legs get tired; incision in chest healing well, used right leg veins for CABG, said they are healing; GI Surgical History: Reports: Appendectomy, Other (See Below) Other GI Surgeries/Procedures: LAP TOÑO. color resection Female Surgical History: Reports: Hysterectomy Musculoskeletal Surgical History: Reports: Other (See Below) Other Musculoskeletal Surgeries/Procedures:: KNEE SURGERY Social & Family History - Family History Family Medical History: Noncontributory - Caffeine Use Caffeine Use: Reports: Soda Caffeine Use Comment: 1 diet coke/day. Discussed ED ROS GENERAL - Review of Systems Review Of Systems: See Below Constitutional: Reports: No Symptoms HEENT: Reports: No Symptoms Respiratory: Reports: Shortness of Breath Cardiovascular: Reports: Chest Pain. Denies: Edema, Lightheadedness Endocrine: Reports: No Symptoms GI/Abdominal: Reports: Nausea. Denies: Abdominal Pain, Diarrhea, Vomiting : Reports: No Symptoms Musculoskeletal: Reports: Shoulder Pain (bilateral) Skin: Reports: No Symptoms Neurological: Reports: No Symptoms Psychiatric: Reports: No Symptoms Hematologic/Lymphatic: Reports: No Symptoms Immunologic: Reports: No Symptoms ED EXAM, GENERAL - Physical Exam Exam: See Below Exam Limited By: No Limitations General Appearance: Alert, WD/WN, No Apparent Distress Eye Exam: Bilateral Eye: Normal Inspection, PERRL Ears: Normal External Exam, Normal Canal, Hearing Grossly Normal, Normal TMs Ear Exam: Bilateral Ear: Auricle Normal, Canal Normal, TM normal Nose: Normal Inspection, Normal Mucosa, No Blood Throat/Mouth: Normal Inspection, Normal Lips, Normal Teeth, Normal Gums, Normal Oropharynx, Normal Voice, No Airway Compromise Head: Atraumatic, Normocephalic Neck: Normal Inspection, Supple, Non-Tender, Full Range of Motion Respiratory/Chest: No Respiratory Distress, Lungs Clear, Normal Breath Sounds, No Accessory Muscle Use, Chest Non-Tender Cardiovascular: Normal Peripheral Pulses, Regular Rate, Rhythm, No Edema, No Gallop, No JVD, No Murmur, No Rub Peripheral Pulses: 2+: Radial (L), Radial (R), Posterior Tibial (L), Posterior Tibial (R), Dorsalis Pedis (L), Dorsalis Pedis (R) GI/Abdominal: Normal Bowel Sounds, Soft, Non-Tender, No Organomegaly, No Distention, No Abnormal Bruit, No Mass, Pelvis Stable (Female) Exam: Deferred Rectal (Female) Exam: Deferred Back Exam: Normal Inspection, Full Range of Motion. No: CVA Tenderness (L), CVA Tenderness (R), Decreased Range of Motion, Muscle Spasm, Paraspinal Tenderness, Vertebral Tenderness Extremities: Normal Inspection, Normal Range of Motion, Non-Tender, No Pedal Edema, Normal Capillary Refill. No: Pedal Edema, Slow Capillary Refill, Joint Swelling, Arm Pain, Leg Pain, Limited Range of Motion, Increased Warmth, Mottled , Redness Neurological: Alert, Oriented, Normal Cognition, Normal Gait, No Motor/Sensory Deficits Psychiatric: Normal Affect, Normal Mood Skin Exam: Warm, Dry, Intact, Normal Color, No Rash Lymphatic: No Adenopathy EKG INTERPRETATION EKG Date: 05/16/18 ST-T: Normal EKG Interpretation Comments: Pacemaker Course - Vital Signs Last Recorded V/S: Last Vital Signs Temp 98.2 F 05/16/18 01:40 Pulse 70 05/16/18 01:40 Resp 18 05/16/18 01:40 BP 158/84 H 05/16/18 01:40 Pulse Ox 97 05/16/18 01:40 - Orders/Labs/Meds Orders: Active Orders 24 hr Category Date Time Status Chest 2V [CR] Stat Exams 05/15/18 22:35 Taken Labs: Laboratory Tests 05/15/18 05/15/18 05/15/18 Range/Units 22:45 22:45 22:45 WBC 21.0 H* (5.0-10.0) 10^3/uL RBC 3.66 L (4.00-5.50) 10^6/uL Hgb 11.8 L (12.0-16.0) g/dL Hct 34.8 L (37.0-47.0) % MCV 95.1 H (82.0-94.0) fL MCH 32.2 H (27.0-32.0) pg MCHC 33.9 (33.0-38.0) g/dL RDW Coeff of Eduardo 12.4 (11.0-15.0) % Plt Count 255 (150-400) 10^3/uL Add Manual Diff Yes Neutrophils % (Manual) 92 H (35-85) % Lymphocytes % (Manual) 3 L (21-55) % Monocytes % (Manual) 5 (2-12) % Absolute Neutrophils 19.32 H (1.80-7.00) 10^3/uL Lymphocytes # (Manual) 0.63 L (1.00-4.80) 10^3/uL Monocytes # (Manual) 1.05 H (0.00-0.80) 10^3/uL APTT (23.2-32.3) SEC D-Dimer, Quantitative 0.38 (0.00-0.50) Sodium 134 L (136-145) mEq/L Potassium 3.3 L (3.5-5.0) mEq/L Chloride 97 L (98-106) mEq/L Carbon Dioxide 27 (21-32) mmol/L BUN 27 H D (7-18) mg/dL Creatinine 1.1 H (0.6-1.0) mg/dL Est Cr Clr Drug Dosing 34.41 mL/min Estimated GFR (MDRD) 48 L (>=60) mL/min Glucose 233 H D (75-99) mg/dL Calcium 8.6 (8.4-10.1) mg/dL Total Bilirubin 0.3 (0.0-1.0) mg/dL AST 46 H (15-37) U/L ALT 61 (12-78) U/L Alkaline Phosphatase 92 (46-116) U/L Creatine Kinase 166 (21-215) U/L Troponin I 0.414 H (0.00-0.06) ng/mL C-Reactive Protein 0.3 (0.2-0.8) mg/dL NT-Pro-B Natriuret Pep 1898 H (0-1000) pg/mL Total Protein 7.4 (6.4-8.2) g/dL Albumin 3.2 L (3.4-5.0) g/dL Free T4 1.3 (0.8-1.6) ng/dL TSH, Ultra Sensitive 0.14 L (0.36-5.60) uIU/mL Urine Color (YELLOW) Urine Appearance (CLEAR) Urine pH (4.5-8.0) Ur Specific [place] (1.003-1.020) Urine Protein (NEGATIVE) mg/dL Urine Glucose (UA) (NEGATIVE) mg/dL Urine Ketones (NEGATIVE) mg/dL Urine Occult Blood (NEGATIVE) Urine Nitrite (NEGATIVE) Urine Bilirubin (NEGATIVE) Urine Urobilinogen (0.2-1.0) EU/dL Ur Leukocyte Esterase (NEGATIVE) Urine RBC (0-5) /HPF Urine WBC (0-5) /HPF Ur Squamous Epith Cells (NOT SEEN) /HPF Urine Bacteria (NOT SEEN) /HPF 05/15/18 05/15/18 Range/Units 22:45 23:01 WBC (5.0-10.0) 10^3/uL RBC (4.00-5.50) 10^6/uL Hgb (12.0-16.0) g/dL Hct (37.0-47.0) % MCV (82.0-94.0) fL MCH (27.0-32.0) pg MCHC (33.0-38.0) g/dL RDW Coeff of Eduardo (11.0-15.0) % Plt Count (150-400) 10^3/uL Add Manual Diff Neutrophils % (Manual) (35-85) % Lymphocytes % (Manual) (21-55) % Monocytes % (Manual) (2-12) % Absolute Neutrophils (1.80-7.00) 10^3/uL Lymphocytes # (Manual) (1.00-4.80) 10^3/uL Monocytes # (Manual) (0.00-0.80) 10^3/uL APTT 23.6 (23.2-32.3) SEC D-Dimer, Quantitative (0.00-0.50) Sodium (136-145) mEq/L Potassium (3.5-5.0) mEq/L Chloride (98-106) mEq/L Carbon Dioxide (21-32) mmol/L BUN (7-18) mg/dL Creatinine (0.6-1.0) mg/dL Est Cr Clr Drug Dosing mL/min Estimated GFR (MDRD) (>=60) mL/min Glucose (75-99) mg/dL Calcium (8.4-10.1) mg/dL Total Bilirubin (0.0-1.0) mg/dL AST (15-37) U/L ALT (12-78) U/L Alkaline Phosphatase (46-116) U/L Creatine Kinase (21-215) U/L Troponin I (0.00-0.06) ng/mL C-Reactive Protein (0.2-0.8) mg/dL NT-Pro-B Natriuret Pep (0-1000) pg/mL Total Protein (6.4-8.2) g/dL Albumin (3.4-5.0) g/dL Free T4 (0.8-1.6) ng/dL TSH, Ultra Sensitive (0.36-5.60) uIU/mL Urine Color Yellow (YELLOW) Urine Appearance Slightly cloudy (CLEAR) Urine pH 6.0 (4.5-8.0) Ur Specific [place] 1.020 (1.003-1.020) Urine Protein 30 H (NEGATIVE) mg/dL Urine Glucose (UA) 500 H (NEGATIVE) mg/dL Urine Ketones Negative (NEGATIVE) mg/dL Urine Occult Blood Small H (NEGATIVE) Urine Nitrite Negative (NEGATIVE) Urine Bilirubin Negative (NEGATIVE) Urine Urobilinogen 0.2 (0.2-1.0) EU/dL Ur Leukocyte Esterase Negative (NEGATIVE) Urine RBC 5-10 H (0-5) /HPF Urine WBC 0-5 (0-5) /HPF Ur Squamous Epith Cells Moderate H (NOT SEEN) /HPF Urine Bacteria Few H (NOT SEEN) /HPF Meds: Medications Discontinued Medications Generic Name Dose Route Start Last Admin Trade Name Freq PRN Reason Stop Dose Admin Aspirin 324 mg 05/16/18 01:01 05/16/18 01:34 Aspirin PO 05/16/18 01:02 324 mg ONETIME ONE Administration Heparin Sodium (Porcine) 3,600 units 05/16/18 01:16 05/16/18 01:46 Heparin Sodium IVPUSH 05/16/18 01:17 3,600 units .BOLUS ONE Administration Heparin Sodium/Dextrose 25,000 units in 500 mls @ 17.962 mls/hr 05/16/18 01: 30 05/16/18 01:46 Heparin 25,000 Units In D5w 500 Ml IV 15 units/kg/hr TITRATE KRISSY 17.962 mls/hr Administration Protocol 15 UNITS/KG/HR - Radiology Interpretation Free Text/Narrative:: CXR: No infiltrates, no pulmonary edema. LLL actelectasis no change from previous, perhaps smaller. Pacemaker and wires in place. Previous CABG. - Re-Assessments/Exams Free Text/Narrative Re-Assessment/Exam: 05/15/18 23:13 Patient just ambulated to the bathroom and back to bed without any chest pain or shortness of breath. pain 0/10. 05/16/18 00:44 I have called and spoke to dowel inspector immigration law specialist at [facility]. She reports to transfer the patient for evaluation. I then spoke to the hospitalist about the patient Dr. Gusman. Hospitalist has accepted the patient. He would like Heparin bolus and gtt started on the patient, as well as ASA. Will transfer. 05/16/18 00:47 I believe wbc elevation and BS are due to multiple steroid joint injections yesterday. Patient has no bacterial infection complaints. Departure - Departure Time of Disposition: 00:46 Disposition: DC/Tfer to Acute Hospital 02 Preliminary Cause of *Q: Other_Special Instruction Reason for Transfer *Q: Other Condition: Fair Clinical Impression: Acute coronary syndrome, Elevated troponin, Non-ST elevated myocardial infarction Referrals: PCP,None [Primary Care Provider] - Forms: ED Department Discharge - My Orders Last 24 Hours: My Active Orders 05/15/18 22:35 Chest 2V [CR] Stat - Assessment/Plan Last 24 Hours: My Active Orders 05/15/18 22:35 Chest 2V [CR] Stat Plan: PLEASE SEE RN NOTE FOR PFSH. The patient is being transferred to [facility]. Patient risk and benefits explained to the patient. The risk of transfer are mvc, , increase in pain , cardiac arrest. The benefits of transfer are higher level of care, dowel inspector, stress testing or angiogram with cardiac intervention if needed. The benefits of staying in [place] are close to home. The risks with staying in [place] are , worsening of pain and condition.
[2018-05-16] MEDS ORDERED: Aspirin 81 MG Tab.Chew PO ONE (01:01)
[2018-05-16] MEDS ORDERED: Heparin Sodium 10,000 Units/1 ML MDV IVPUSH ONE (01:16)
[2018-05-16] MEDS ORDERED: Heparin Sodium/D5W 25,000 UNITS/500 ML BAG IV SCH (01:30)
[2018-05-16 01:54] VITALS: BP 158/84
== END 2018-05-16 02:30 ==
LOC: CC.ED 22:21
DX: I21.4 Non-ST elevation (NSTEMI) myocardial infarction (principal); I24.9 Acute ischemic heart disease, unspecified; R79.89 Other specified abnormal findings of blood chemistry; I10 Essential (primary) hypertension; E78.00 Pure hypercholesterolemia, unspecified; Z79.82 Long term (current) use of aspirin; Z79.899 Other long term (current) drug therapy; Z91.011 Allergy to milk products; Z88.8 Allergy status to other drugs, medicaments and biological substances
CPT/HCPCS: 36415; 71046; 80053; 81001; 82550; 83880; 84439; 84443; 84484; 85025; 85379; 85730; 86140; 96365; 99284; 99285; A9270-GY; J1644

== ENCOUNTER 2024-06-06 23:42 | Emergency (ER) | payer MEDICARE, BC ==
[2024-06-07 00:31] LABS: BASOPHILS ABSOLUTE AUTO 0.02 10^3/uL (0.00-0.50); BASOPHILS PERCENT AUTO 0.2 % (0-1); EOSINOPHILS ABSOLUTE AUTO 0.07 10^3/uL (0.00-1.50); EOSINOPHILS PERCENT AUTO 0.8 % (0-6); HEMATOCRIT 25.6 % (37.0-47.0); HEMOGLOBIN 8.7 g/dL (12.0-16.0); IMMATURE GRAN ABSOLUTE AUTO 0.04 10^3/uL (0.00-0.49); IMMATURE GRAN PERCENT AUTO 0.5 % (0.0-4.9); LYMPHOCYTES ABSOLUTE AUTO 1.11 10^3/uL (0.60-5.00); LYMPHOCYTES PERCENT AUTO 12.7 % (24-44); MEAN CORPUSCULAR HEMOGLOBIN 32.1 pg (27.0-32.0); MEAN CORPUSCULAR VOLUME 94.5 fL (83.0-97.0); MONOCYTES ABSOLUTE AUTO 0.83 10^3/uL (0.00-1.50); MONOCYTES PERCENT AUTO 9.5 % (0-10); NEUTROPHILS ABSOLUTE AUTO 6.69 x10^3/uL (1.80-8.00); NEUTROPHILS PERCENT AUTO 76.3 % (41-71); PLATELET COUNT,PLT 203 10^3/uL (150-400); RED BLOOD CELL COUNT 2.71 x10^6/uL (4.00-5.50); WHITE BLOOD CELL COUNT,WBC 8.8 10^3/uL (4.0-11.0)
[2024-06-07 00:48] LABS: ALBUMIN 3.1 g/dL (3.4-5.0); BILIRUBIN TOTAL 0.4 mg/dL (0.0-1.0); CALCIUM 8.9 mg/dL (8.4-10.1); EST CRCL DRUG DOSING (CG) 34.3 mL/min; MAGNESIUM 1.6 mg/dL (1.8-2.4); POTASSIUM,K 4.7 mEq/L (3.5-5.0); PROTEIN TOTAL,TP 5.9 g/dL (6.4-8.2)
[2024-06-07 00:55] LABS: INR 1.05 (0.92-1.18)
[2024-06-07] MEDS: Sodium Chloride 0.9% 1,000 ML IV ONE (01:35)
[2024-06-07] MEDS: Pantoprazole 40 MG Vial IVPUSH ONE (02:42)
[2024-06-07] MEDS: ALPRAZolam 0.25 MG Tab PO ONE (02:55)
[2024-06-07 03:59] VITALS: BP 109/66; PULSE 80
== END 2024-06-07 03:45 ==
LOC: CC.ED 23:42
DX: K92.2 Gastrointestinal hemorrhage, unspecified (principal); I10 Essential (primary) hypertension; E78.00 Pure hypercholesterolemia, unspecified; Z95.0 Presence of cardiac pacemaker; Z95.1 Presence of aortocoronary bypass graft; Z91.011 Allergy to milk products; Z88.8 Allergy status to other drugs, medicaments and biological substances; Z79.890 Hormone replacement therapy; Z79.82 Long term (current) use of aspirin
CPT/HCPCS: 36415; 36430; 71045; 80053; 83735; 84484; 85025; 85610; 86140; 86850; 86900; 86901; 86920; 86922; 87428-QW; 93005; 96361; 96374; 99285-25; A9270-GY; J2470; J7030; P9016